=== PATIENT | female | born 1980 ===

== ENCOUNTER → 2021-01-27 13:08 | Outpatient (BNVA) | payer MEDICAID, SELFPAY | PROVIDERS: Visit Provider Surgery ==

== ENCOUNTER → 2021-01-28 09:47 | Outpatient (BNVA) | payer MEDICAID, SELFPAY | PROVIDERS: Visit Provider Physician Assistant ==

== ENCOUNTER 2021-02-02 08:59 | Outpatient (REF) | payer OTHER, SELFPAY ==
--- NOTE | ~2021-02-02 | XR_ITS ---
EXAMINATION: XR CHEST CLINICAL INFORMATION: Moderate/severe base due to excessive calories COMPARISON: None TECHNIQUE: 2 views of the chest were obtained. FINDINGS: No significant abnormality is noted involving the heart, lungs, mediastinum, bony thorax or soft tissues. XR/XR chest 2V IMPRESSION: Unremarkable chest examination.
--- NOTE | 2021-02-02 09:11 | ECG_ITS ---
Test Reason : MORBID OBESITY Blood Pressure : / mmHG Vent. Rate : 077 BPM Atrial Rate : 077 BPM P-R Int : 134 ms QRS Dur : 078 ms QT Int : 364 ms P-R-T Axes : 015 023 011 degrees QTc Int : 411 ms Normal sinus rhythm Normal ECG No previous ECGs available Referred By: Hugo Colmenares Electronically Signed By:Usman Ralph
[2021-02-02 09:42] LABS: MANUAL DIFF FLAG NO
[2021-02-02 09:49] LABS: Basophils Percent Auto 0.3 % (0-2); Eosinophils Absolute Auto 0.2 X10*3/uL (0.0-0.4); Eosinophils Percent Auto 1.9 % (0-4); Hematocrit 39.6 % (37-47); Hemoglobin 12.2 g/dl (12.0-16.0); Imm Gran Abs Auto 0.03 X10*3/uL (0.00-0.03); Imm Gran Pct Auto 0.3 % (0.0-0.4); Lymphocytes Absolute Auto 2.1 X10*3/uL (1.2-4.9); Lymphocytes Percent Auto 23.5 % (20-40); Mean Corpuscular HGB Conc 30.8 g/dl (31.0-35.0); Mean Corpuscular Hemoglobin 27.2 pg (27.0-33.0); Mean Corpuscular Volume 88.2 fL (80-98); Mean Platelet Volume 9.6 fL (9.4-12.3); Monocytes Absolute Auto 0.8 X10*3/uL (0.1-1.2); Monocytes Percent Auto 8.7 % (2-11); Neutrophils Absolute Auto 5.7 X10*3/uL (2.0-8.3); Neutrophils Percent Auto 65.3 % (45-73); Platelet Count 395 X10*3/uL (160-400); Red Blood Count 4.49 X10*6/uL (4.20-5.50); Red Cell Distribution Width 13.2 % (11.0-16.0); White Blood Count 8.7 X10*3/uL (4.8-10.8)
[2021-02-02 09:58] LABS: Estimated Average Glucose 123 mg/dL; Hemoglobin A1c % 5.9 %
[2021-02-02 10:06] LABS: Alanine Aminotransferase 14 U/L (0-31); Alkaline Phosphatase 97 U/L (39-117); Anion Gap 11 (12-20); Aspartate Amino Transferase 15 U/L (5-31); Bilirubin Total 0.2 mg/dL (0.0-1.0); Blood Urea Nitrogen 15 mg/dL (9-16); C Reactive Protein 2.51 mg/dL (< or = 0.50); Carbon Dioxide 27 mmol/L (22-29); Chloride 105 mmol/L (96-108); Cholesterol 187 mg/dL; Estimated Glomerular Filt Rate > 60; Glucose Random 110 mg/dL (60-115); HDL Cholesterol 42 mg/dL; LDL Cholesterol Calculated 126 mg/dl; Sodium 138 mmol/L (135-145); Total Protein 7.8 g/dL (6.5-8.0); Triglycerides 99 mg/dL
[2021-02-02 10:31] LABS: Ferritin 29 ng/mL (10-122); TSH reflex Free T4 2.95 uIU/mL (0.32-4.0); Vitamin D 25-OH Total 12.6 ng/mL (>30)
[2021-02-02 11:00] LABS: Folate 5.6 ng/mL (> or = 4.0); Vitamin B12 407 pg/mL (200-900)
[2021-02-03 10:27] LABS: Insulin Level Total 14.3 uIU/mL
[2021-02-03 14:53] LABS: H Pylori Breath Test DETECTED (NOT DETECTED)
[2021-02-03 16:27] LABS: Calcium (PTHI) 9.3 mg/dL (8.6-10.2); PTHI 110 pg/mL (14-64)
[2021-02-06 10:58] LABS: Zinc 77 mcg/dL (60-130)
[2021-02-07 06:17] LABS: Vitamin B1 7 nmol/L (8-30)
[2021-02-07 13:47] LABS: Vitamin A 27 mcg/dL (38-98)
== END 2021-02-02 09:00 | disposition home or self-care (01) ==
LOC: HO.LAB 08:59
PROVIDERS: Visit Provider Surgery
DX: E66.01 Morbid (severe) obesity due to excess calories (principal)
CPT/HCPCS: 36415; 71046; 80053; 80061; 82306; 82607; 82728; 82746; 83013; 83036; 83525; 83970; 84425; 84443; 84590; 84630; 85025; 86140; 93005; 99211

== ENCOUNTER 2021-02-10 08:49 | Outpatient (REF) | payer OTHER, SELFPAY ==
--- NOTE | ~2021-02-10 | FL_ITS ---
EXAMINATION: XR GI SERIES CLINICAL INFORMATION: Morbid posterior base due to excessive calyces COMPARISON: None TECHNIQUE: Routine upper GI air-contrast study is performed in upright and lying position. FINDINGS: Following oral administration of thick barium and effervescent granules there is normal propagation of bolus from the oral cavity through the pharynx, esophagus into stomach without any evidence of obstruction, narrowing or stricture. The course, caliber and peristalsis of the stomach and the duodenum is normal. There is a mild gastroesophageal reflux in right lateral decubitus view. No hiatal hernia seen. The mucosal pattern of stomach, duodenal bulb and the sweep is normal. FLUOROSCOPY TIME: 2.1 minutes DOSE AREA PRODUCT: 47.88 4 uGy-m2 (microgray-meter squared) FL/FL upper GI series IMPRESSION: Mild gastroesophageal reflux without hiatal hernia.
--- NOTE | ~2021-02-10 | US_ITS ---
EXAMINATION: US COMPLETE ABDOMEN WITH LIVER ELASTOGRAPHY CLINICAL INFORMATION: Moderate/severe obesity due to excess calories. COMPARISON: None. TECHNIQUE: Real-time imaging of the abdominal viscera. Noninvasive ultrasound liver fibrosis assessment is performed using Jaimie ElastPQ point quantification shear wave elastography (pSWE) with a C5-2 MHz transducer. Multiple elastography samples are obtained. FINDINGS: PANCREAS: The visualized pancreatic head and body are normal in appearance. The remainder of the pancreas is obscured from visualization by the overlying bowel gas. ABDOMINAL AORTA: The proximal, middle, and distal aortic segments are normal in caliber. INFERIOR VENA CAVA: Visualized portions are normal. LIVER: The liver demonstrates normal size, contour and increased echogenicity. No focal lesion or intrahepatic biliary duct dilatation. The right lobe measures 14.7 cm in length. The left lobe measures 11.1 cm in length. Portal flow is hepatopedal. Shear wave liver elastography median stiffness is 1.09 m/s (reference: normal median stiffness is 1.3 m/s or less). IQR/median stiffness to assess sampling precision is 0.13 (reference: good quality data set is IQR/median stiffness of 0.15 or less). GALLBLADDER: Normal. The gallbladder is physiologically distended without evidence of stones, sludge, polyps, wall thickening or pericholecystic fluid. COMMON BILE DUCT: Normal in caliber measuring 0.4 cm in diameter. RIGHT KIDNEY: Normal. No hydronephrosis. No renal calculi or focal parenchymal lesions. The kidney measures 10.5 cm in maximum dimension. LEFT KIDNEY: Normal. No hydronephrosis. No renal calculi or focal parenchymal lesions. The kidney measures 10.8 cm in maximum dimension. SPLEEN: Normal. The spleen measures 11.3 cm in maximum dimension. FREE FLUID: None. US/US abdomen comp w elastography IMPRESSION: 1. Mild hepatic echogenicity. The rest of the abdominal ultrasound is unremarkable. 2. Liver elastography: Median stiffness 1.09 m/s. Normal exam. REFERENCE: Society of Radiologists in Ultrasound Liver Stiffness Thresholds (2020): LIVER STIFFNESS THRESHOLDS: *Liver Stiffness equal or less than 1.3 m/s: High probability of being normal. *Liver Stiffness less than 1.7 m/s: In the absence of other known clinical signs, rules out compensated advanced chronic liver disease. *Liver Stiffness 1.7-2.1 m/s: Suggestive of compensated advanced chronic liver disease but need further test for confirmation. *Liver Stiffness over 2.1 m/s: Rules in compensated advanced chronic liver disease. *Liver Stiffness over 2.4 m/s: Suggestive of clinically significant portal hypertension. QUALITY OF DATA SET: *IQR/Median value equal or less than 0.15 implies a quality data set. *IQR/Median value over 0.15 implies a poor quality data set. SIGNIFICANT CHANGE FROM PRIOR EXAM: Significant change if liver stiffness measurement is 10% or greater from prior exam. OTHER CONSIDERATIONS: The stage of liver fibrosis may be overestimated in the setting of acute hepatitis, liver inflammation, elevated liver function tests, hepatic vascular congestion, obstructive cholestasis, non-fasting state, and infiltrative diseases such as amyloidosis and lymphoma. In some patients with NAFLD, the liver stiffness thresholds for compensated advanced chronic liver disease may be lower. In causes other than viral hepatitis and NAFLD, liver stiffness thresholds are not well established.
== END 2021-02-10 08:50 | disposition home or self-care (01) ==
LOC: HO.US 08:49
PROVIDERS: PCP Nurse Practitioner Family; Visit Provider Surgery
DX: Z01.818 Encounter for other preprocedural examination (principal); E66.01 Morbid (severe) obesity due to excess calories; K21.9 Gastro-esophageal reflux disease without esophagitis
CPT/HCPCS: 74240; 76705; 76981

== ENCOUNTER → 2021-02-16 08:15 | Outpatient (BNVA) | payer OTHER, SELFPAY | PROVIDERS: PCP Nurse Practitioner Family; Visit Provider Surgery ==

== ENCOUNTER → 2021-02-23 08:08 | Outpatient (BNVA) | payer OTHER, SELFPAY | PROVIDERS: Visit Provider Dietitian, Registered ==

== ENCOUNTER 2021-03-10 08:26 | Outpatient (REF) | payer OTHER, SELFPAY ==
[2021-03-11 13:36] LABS: H Pylori Breath Test NOT DETECTED (NOT DETECTED)
== END 2021-03-10 08:27 | disposition home or self-care (01) ==
LOC: HO.LNP 08:26
PROVIDERS: Visit Provider Surgery
DX: E66.01 Morbid (severe) obesity due to excess calories (principal); A04.8 Other specified bacterial intestinal infections
CPT/HCPCS: 83013; 99211

== ENCOUNTER → 2021-03-14 08:46 | Outpatient (BNVA) | payer OTHER, SELFPAY | PROVIDERS: PCP Nurse Practitioner Family; Visit Provider Surgery ==

== ENCOUNTER → 2021-03-23 08:26 | Outpatient (BNVA) | payer OTHER, SELFPAY | PROVIDERS: PCP Nurse Practitioner Family; Visit Provider Dietitian, Registered | DX: E66.01 Morbid (severe) obesity due to excess calories (principal); Z68.41 Body mass index [BMI] 40.0-44.9, adult; Z71.3 Dietary counseling and surveillance | CPT/HCPCS: 97803 ==

== ENCOUNTER → 2021-04-06 08:10 | Outpatient (BNVA) | payer OTHER, SELFPAY | PROVIDERS: PCP Nurse Practitioner Family; Visit Provider Surgery ==

== ENCOUNTER → 2021-04-29 08:26 | Outpatient (BNVA) | payer OTHER, SELFPAY | PROVIDERS: PCP Nurse Practitioner Family; Visit Provider Surgery ==

== ENCOUNTER → 2021-05-27 09:18 | Outpatient (BNVA) | payer OTHER, SELFPAY | PROVIDERS: PCP Nurse Practitioner Family; Referring Provider Nurse Practitioner Family; Visit Provider Physician Assistant ==

== ENCOUNTER → 2021-06-06 07:06 | Outpatient (BNVA) | payer OTHER, SELFPAY | PROVIDERS: PCP Nurse Practitioner Family; Visit Provider Surgery | DX: E66.9 Obesity, unspecified (principal); K21.9 Gastro-esophageal reflux disease without esophagitis; Z68.39 Body mass index [BMI] 39.0-39.9, adult | CPT/HCPCS: 99212 ==

== ENCOUNTER 2021-06-07 09:23 | Outpatient (REF) | payer OTHER, SELFPAY ==
[2021-06-07 10:17] LABS: MANUAL DIFF FLAG NO
[2021-06-07 10:22] LABS: Basophils Percent Auto 0.4 % (0-2); Eosinophils Absolute Auto 0.2 X10*3/uL (0.0-0.4); Eosinophils Percent Auto 1.8 % (0-4); Hematocrit 39.1 % (37-47); Hemoglobin 11.9 g/dl (12.0-16.0); Imm Gran Abs Auto 0.02 X10*3/uL (0.00-0.03); Imm Gran Pct Auto 0.2 % (0.0-0.4); Lymphocytes Absolute Auto 1.9 X10*3/uL (1.2-4.9); Lymphocytes Percent Auto 23.9 % (20-40); Mean Corpuscular HGB Conc 30.4 g/dl (31.0-35.0); Mean Corpuscular Hemoglobin 26.1 pg (27.0-33.0); Mean Corpuscular Volume 85.7 fL (80-98); Mean Platelet Volume 9.9 fL (9.4-12.3); Monocytes Absolute Auto 0.7 X10*3/uL (0.1-1.2); Monocytes Percent Auto 9.1 % (2-11); Neutrophils Absolute Auto 5.2 X10*3/uL (2.0-8.3); Neutrophils Percent Auto 64.6 % (45-73); Platelet Count 331 X10*3/uL (160-400); Red Blood Count 4.56 X10*6/uL (4.20-5.50); Red Cell Distribution Width 13.5 % (11.0-16.0); White Blood Count 8.1 X10*3/uL (4.8-10.8)
[2021-06-07 10:28] LABS: Prothrombin Time 11.4 SEC (9.9-13.0)
[2021-06-07 10:31] LABS: Partial Thromboplastin Time 32.8 SEC (24.1-38.0)
[2021-06-07 10:41] LABS: Estimated Average Glucose 120 mg/dL; Hemoglobin A1c % 5.8 %
[2021-06-07 10:44] LABS: Alanine Aminotransferase 11 U/L (0-31); Albumin Level 3.9 g/dL (3.5-5.0); Alkaline Phosphatase 80 U/L (39-117); Anion Gap 13 (12-20); Aspartate Amino Transferase 15 U/L (5-31); Bilirubin Total 0.4 mg/dL (0.0-1.0); Blood Urea Nitrogen 15 mg/dL (9-16); C Reactive Protein 2.01 mg/dL (< or = 0.50); Calcium 8.9 mg/dL (8.4-10.2); Carbon Dioxide 24 mmol/L (22-29); Chloride 107 mmol/L (96-108); Cholesterol 190 mg/dL; Estimated Glomerular Filt Rate > 60; Glucose Random 104 mg/dL (60-115); HDL Cholesterol 46 mg/dL; LDL Cholesterol Calculated 123 mg/dl; Potassium 4.6 mmol/L (3.3-5.1); Sodium 139 mmol/L (135-145); Total Protein 7.4 g/dL (6.5-8.0); Triglycerides 108 mg/dL
[2021-06-07 11:07] LABS: Ferritin 18 ng/mL (10-122); TSH reflex Free T4 2.62 uIU/mL (0.32-4.0)
[2021-06-08 13:51] LABS: PTHI 77 pg/mL (14-64)
[2021-06-08 22:16] LABS: Insulin Level Total 13.9 uIU/mL
== END 2021-06-07 09:24 | disposition home or self-care (01) ==
LOC: HO.LAB 09:23
PROVIDERS: PCP Nurse Practitioner Family; Visit Provider Surgery
DX: E66.9 Obesity, unspecified (principal); Z68.39 Body mass index [BMI] 39.0-39.9, adult; K21.9 Gastro-esophageal reflux disease without esophagitis
CPT/HCPCS: 36415; 80053; 80061; 82728; 83036; 83525; 83970; 84443; 85025; 85610; 85730; 86140; 86850; 86900; 86901

== ENCOUNTER 2021-06-13 19:24 | Inpatient (IN) | payer OTHER, SELFPAY ==
[2021-06-01 10:28] VITALS: BMI 38.7
--- NOTE | 2021-06-13 08:25 | P.CONAN_ITS ---
Documented by User: Rebecca Farrar 06/13/21 08:28 HPI - Anesthesia Eval Consult details Narrative: 40yo F for Gastrectomy Sleeve, EGD, Poss Diaphragmatic Hernia, Poss Ventral Hernia, Poss open PMFSH Active Problems Active Problems: All Active Problems (Updated 06/01/21 @ 10:29 by Carey Goss) Physical exam (Acute) Vitamin B1 deficiency (Acute) Vitamin A deficiency (Acute) Vitamin D deficiency (Acute) Vitamin B12 deficiency (Acute) H. pylori infection (Acute) Adjustment disorder, unspecified (Acute) Obesity (Acute) BMI 39.0-39.9,adult (Acute) GERD (gastroesophageal reflux disease) (Acute) Morbid obesity (Acute) Past Medical History Medical History COVID-19 vaccine administered GERD (gastroesophageal reflux disease) Morbid obesity Family History Family History Mother No problems noted. Father Pancreatic cancer Sister No problems noted. Sister No problems noted. Sister No problems noted. Brother No problems noted. Brother No problems noted. Daughter No problems noted. Son No problems noted. Surgical History Surgical History Hx of section Social History Social History Household Members: Family Housing: House Are you a primary personal care aide to a significant other at home: No Do you presently have visiting nurse or other home services: No Alcohol intake: current Alcohol intake frequency: holidays/special occasions only Patient Tobacco Use Status: Never used Tobacco Use of substances other than those prescribed or required for medical reasons: No Have you been hit, kicked, punched, or otherwise hurt by someone within the past year? If so, by whom?: No Are you DNR?: No Advance Directives: No Advance Directives Information Provided: No Advance Directives on File: No Recently lost weight without trying: No Eating poorly because of decreased appetite: No Nutrition Risks: No Nutritional Risk Patient : No FDLMP: 05/25/21 : No Poor oral hygiene: No (has braces (upper & lower)) Meds Allergies Allergy/AdvReac Type Severity Reaction Status Date / Time No Known Allergies Allergy Verified 06/14/21 10:16 Exam Exam Date and Time: June 13, 2021 0825 Height,Weight and Vital Signs: Height 5 ft 6 in Weight 108.862 kg Pertinent Lab Results Pertinent Lab Results: Laboratory Tests 06/07/21 09:35 Blood Type O Positive Antibody Screen NEGATIVE Laboratory Tests 06/07/21 06/07/21 09:35 09:35 WBC 8.1 Hgb 11.9 L Hct 39.1 Plt Count 331 Sodium 139 Potassium 4.6 Chloride 107 Carbon Dioxide 24 BUN 15 Creatinine 0.89 Laboratory Tests 06/07/21 06/07/21 06/07/21 09:35 09:35 09:35 PT 11.4 INR 1.0 APTT 32.8 Hemoglobin A1c % 5.8 Total Bilirubin 0.4 AST 15 ALT 11 Alkaline Phosphatase 80 C-Reactive Protein 2.01 H Total Protein 7.4 Albumin 3.9 TSH 2.62 Narrative Narrative: EKG 01/2021 Vent. Rate : 077 BPM Atrial Rate : 077 BPM P-R Int : 134 ms QRS Dur : 078 ms QT Int : 364 ms P-R-T Axes : 015 023 011 degrees QTc Int : 411 ms Normal sinus rhythm Normal ECG No previous ECGs available Assessment and Plan Assessment Anesthesia Assessment: Chart Reviewed Documented by User: Washington Hein 06/14/21 10:16 [facility] Past Medical History Medical History COVID-19 vaccine administered GERD (gastroesophageal reflux disease) Morbid obesity Family History Family History Mother No problems noted. Father Pancreatic cancer Sister No problems noted. Sister No problems noted. Sister No problems noted. Brother No problems noted. Brother No problems noted. Daughter No problems noted. Son No problems noted. Surgical History Surgical History Hx of section Social History Social History Household Members: Family Housing: House Are you a primary personal care aide to a significant other at home: No Do you presently have visiting nurse or other home services: No Alcohol intake: current Alcohol intake frequency: holidays/special occasions only Patient Tobacco Use Status: Never used Tobacco Use of substances other than those prescribed or required for medical reasons: No Have you been hit, kicked, punched, or otherwise hurt by someone within the past year? If so, by whom?: No Are you DNR?: No Advance Directives: No Advance Directives Information Provided: No Advance Directives on File: No Recently lost weight without trying: No Eating poorly because of decreased appetite: No Nutrition Risks: No Nutritional Risk Patient : No FDLMP: 05/25/21 : No Poor oral hygiene: No (has braces (upper & lower)) Meds Allergies Allergy/AdvReac Type Severity Reaction Status Date / Time No Known Allergies Allergy Verified 06/14/21 10:16 Exam Airway Mallampati Class: III TM Dist: >3cm Neck ROM: Full Loose/Missing/Broken Teeth: No Heart: rrr+[id number] Lungs: cta b/l Assessment and Plan Assessment Anesthesia Assessment: Anesthesia Plan Discussed, PAT Visit and Chart Reviewed Final Anesthetic Review NPO: Yes ASA Class: III Final Preanesthetic Review: No Changes in Pt Med Stat, Meds/Allgs Chart Reviewed, Consent Obtained/Reviewed and Anes Risks/Benef Reviewed Patient Risk: Intermediate Procedure Risk: Low Assessment/Block/Sedation in SS: Assess/Block/Sedation-SS Anesthetic Plan Anesthetic Plan: GA and Agree w/ Assess. and Plan Disposition: Standard PACU
--- NOTE | 2021-06-13 19:22 | MHC.SHP ---
Pre-Procedural Eval Section A Date of Service: 06/13/21 The patient is an INPATIENT: Yes The History & Physical has been completed within 30 days and I have reviewed it.: Yes Section B Chief Complaint: Morbid Severe Obesity Details of Present Illness: obesity Relevant Family History (Specify if Yes): No Relevant Social History: None Present Medications: see Short Stay Collaborative assessment Medical History: No relevant PMH History of Previous Operations: No relevant previous surgery Allergies: Allergies Allergy/AdvReac Type Severity Reaction Status Date / Time No Known Allergies Allergy Verified 06/06/21 10:59 Review of Systems Sugical H&P ROS: Negative: Constitution, Cardiovascular, Respiratory, Neurological, Psychiatric, Hem-Onc, Allergic/Immunologic, Gastrointestinal, Genitourinary, Musculoskeletal, Integumentary, Endocrine and Eyes/Ears/Nose/Throat Exam Surgical H&P Exam: Normal: HEENT, Normal: Heart, Normal: Lungs, Normal: Extremities, Normal: Abdomen, Normal: Skin and Normal: Neurological Plan Diagnosis/Plan: Unchanged I have reviewed the history and physical and performed a pertinent physical examination on my patient. No changes have occurred unless specified.
[2021-06-14] VITALS (12 sets, daily range): BP systolic 112–150; BP diastolic 67–80; PULSE 91–109; RESP 12–18; TEMP 36.2–36.7; O2SAT 88–100
[2021-06-14 10:09] LABS: UPreg QC Valid YES; Urine Pregnancy NEGATIVE (NEGATIVE)
[2021-06-14] MEDS: Lactated Ringers 1,000 ML 100 ML IVCONT (10:22)
[2021-06-14 10:31] LABS: COVID-19 Test Negative (Negative); IDNOW Serial# 9DD0AD1C
--- NOTE | 2021-06-14 13:18 | P.DS_ITS ---
DS: Providers Provider Date of Service: 06/15/21 Date of admission: 06/13/21 19:24 Primary care physician: Kristie Macario NP DS: Medications Discharge Medications Home Medications: Previous Rx's Medication Instructions Recorded cholecalciferol (vitamin D3) 125 125 mcg PO DAILY #30 cap 02/07/21 mcg (5,000 unit) capsule mecobalamin (vitamin B12) 1,000 1,000 mcg SUBLINGUAL DAILY #30 tab 02/07/21 mcg disintegrating tablet,sublingual omeprazole 40 mg capsule,delayed 40 mg PO DAILY #14 cap 02/07/21 release thiamine HCl (vitamin B1) 100 mg 100 mg PO DAILY #30 tab 02/07/21 tablet vitamin A palmitate 15,000 unit 10,000 unit PO .COMPLEX #30 tab 02/11/21 tablet ondansetron HCl 4 mg tablet 4 mg PO Q12H #20 tab 06/06/21 pantoprazole 40 mg tablet,delayed 40 mg PO DAILY #30 tab 06/06/21 release polyethylene glycol 3350 17 gram 17 g PO DAILY #14 ea 06/06/21 oral powder packet sucralfate 100 mg/mL oral 10 ml PO BID #400 ml 06/06/21 suspension DS: Summary Time Spent with Patient Time attestation: ADMITTING DIAGNOSIS: morbid obesity, GERD DISCHARGE DIAGNOSIS: same, 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 The patient had extensive work-up,lost 21.4 lbs preoperatively and was electively scheduled for laparoscopic, possible open sleeve gastrectomy and gastropexy. Risks and complications of the surgery were discussed with the patient in advance, particularly the possibility of , pulmonary embolism, anastomotic leak, bleeding, bowel injury, GERD, cardiac, renal or pulmonary complications. The patient understood all the risks and was in agreement with the surgical plan. Hospital Course: The patient underwent an uneventful laparoscopic sleeve gastrectomy with gastropexy on the day of admission. Postoperatively, the patient was transferred to the surgical floor. The patient was on IV Acetaminophen and IV dilaudid for pain control. Patient was started on bariatric phase 1 diet POD #0. On postoperative day one, the patient was feeling well without nausea, vomiting, fevers, or tachycardia. The patient had some mild incisional pain. The abdomen was soft. On the morning of postoperative day one, the patient was continued on 1 ounce of water or ice every half hour. During the first day, the patient did fairly well, having some incisional pain, but able to ambulate adequately and to tolerate liquids well. Since the patient is doing well, we decided that the patient was ready to be discharged. The patient was given instructions to follow-up with me next week and to call my office for any fever over 101, persistent abdominal pain, nausea, vomiting, GERD, symptoms of DVT such as calf tenderness, or leg swelling, or pulmonary embolism such as chest pain or shortness of breath. The patient was also instructed to drink 40-60 ounces of liquids per day using the 1-ounce cups. The patient was given prescription for Tylenol for pain, Zofran prn for nausea, and pantoprazole and carafate. The patient was encouraged to ambulate and use the incentive spirometer. The patient was allowed to shower, but no baths, and encouraged to stay active at home. All of these instructions were given to the patient personally. All questions were answered and the patient understood all instructions, the instructions were also given to the patient in print. Total time spent providing and/or coordinating discharge services: 15 Discharge coordination time: Less than 30 minutes Quality: Stroke Does the patient have a stroke diagnosis?: No Physical Exam Vital Signs: Vital Signs: Last Vital Signs Temp 97.9 F 06/14/21 13:10 Pulse 97 06/14/21 13:15 Resp 16 06/14/21 13:15 BP 131/69 06/14/21 13:15 Pulse Ox 100 06/14/21 13:15 Body Mass Index 38.7 DS: Data Data Completed and Pending Pending studies at discharge: Pending at discharge 06/14/21 12:36 Surgical [PTH] Routine Labs on day of discharge: Laboratory Results - last 24 hr 06/14/21 06/14/21 09:56 09:56 Urine Test NEGATIVE COVID-19 ([facility]) Negative COVID-19 Clin Com See Note Discharge Plan Discharge Anticipated Discharge Date/Time: 06/15/21 11:14 Patient Disposition: Home, Self-Care Discharge Diagnosis: s/p sleeve gastrectomy Referrals: Kristie Macario NP [Primary Care Provider] - 1 Week Discharge Medications: Continued cholecalciferol (vitamin D3) 125 mcg (5,000 unit) capsule 125 mcg PO DAILY Qty: 30 RF: 2 pantoprazole 40 mg tablet,delayed release (DR/EC) 40 mg PO DAILY Qty: 30 RF: 0 sucralfate 100 mg/mL suspension 10 ml PO BID Qty: 400 RF: 2 ondansetron HCl [Zofran] 4 mg tablet 4 mg PO Q12H Qty: 20 RF: 0 Discontinued thiamine HCl (vitamin B1) 100 mg tablet 100 mg PO DAILY Qty: 30 RF: 2 mecobalamin (vitamin B12) 1,000 mcg tablet,disintegrating 1,000 mcg sublingual DAILY Qty: 30 RF: 1 omeprazole 40 mg capsule,delayed release(DR/EC) 40 mg PO DAILY Qty: 14 RF: 0 vitamin A palmitate 15,000 unit tablet 10,000 unit PO .COMPLEX Qty: 30 RF: 2 polyethylene glycol 3350 [Miralax] 17 gram powder in packet 17 g PO DAILY Qty: 14 RF: 0 Discharge Orders: Discharge Order (Routine); Ordered 06/15/21 Ordered By: Hugo Colmenares Diet: other Activity on Discharge: No heavy lifting Stand Alone Forms: Patient Portal Discharge page Care Plan Goals: weight loss Health Concerns: morbid obesity Plan of Treatment: No tub baths, sex or returning to work until discussed at first post op appointment. No exercise, alcohol, tobacco or illegal drug use. Continue to use incentive spirometer hourly while awake. Walk in home for 5- 10 minutes every 2 hours during the first week. Continue phase 1 diet today and start phase 2 diet tomorrow morning. Follow all instructions in the bariatric handbook and call with any questions. The patient's medical history has been reviewed and they are considered low risk for post op DVT and therefore DVT prophylaxis is not considered necessary. Travel after surgery was reviewed. The patient has not disclosed any travel plans during the first 30 days after surgery and they have been advised that within the first 30 days after surgery any bus, plane, train or car travel over 2 hours in duration is contraindicated due to the possibility of developing blood clots from immobility. Any travel, needs to include periods of ambulation of 10 minutes in duration every 2 hours. The patient was instructed to discuss any plans for travel during this period with their bariatric surgeon. Assessment: stable POD # 1 s/p sleeve gastrectomy
[2021-06-14] MEDS: Famotidine/PF 20 MG/2 ML VIAL IVPUSH ×2 (13:35→21:24)
--- NOTE | 2021-06-14 13:36 | PM.OP ---
Brief Operative Note Date of Service: 06/14/21 Pre-op diagnosis: Severe obesity with comorbidities (see below) Post-op diagnosis: same Procedure: INITIAL PATIENT BMI ON PRESENTATION AT OUR OFFICE: 42.4 kg/m2 LAST BMI BEFORE SURGERY: 39.1 kg/m2 COMORBIDITIES: GERD, liver steatosis The patient participated in an intensive weekly lifestyle intervention and exercise program during which the patient has lost between the initial office visit and the last preoperative visit 26 lbs, or 10.05% of initial actual body weight. The patient met the BMI-criteria for bariatric surgery based on the BMI on initial presentation. The patient should not be penalized for achieving such weight loss because it is not sustainable long-term without surgical intervention and it was achieved in preparation for bariatric surgery under my direction and based on my published research ([email or web address] and [email or web address]) that a 10% preoperative weight loss improves long-term weight loss after surgery and reduces perioperative complications. Insurance carriers such as [facility] have endorsed my recommendations and have included in their policies criteria to include a 10% preoperative weight loss requirement. PROCEDURE: Esophago-gastroscopy, laparoscopic lysis of adhesions, laparoscopic sleeve gastrectomy and laparoscopic gastropexy INDICATIONS: This is a 40 year-old female who was electively scheduled for laparoscopic, possibly open sleeve gastrectomy. The risks and complications of the procedure were discussed with the patient in advance, particularly the possibility of ; pulmonary embolism; staple line leak; bleeding; GERD; cardiac, pulmonary, or renal complications; as well as long-term problems such as insufficient weight loss, vitamin deficiency, strictures, or ulcers. The patient understood all the risks, and was in agreement to proceed with surgery. DESCRIPTION OF PROCEDURE: After informed consent was obtained from the patient, the patient was given preoperative antibiotics, and was transferred to the operating room. After successful induction of general anesthesia, pneumatic compressive devices were placed on both lower extremities. An upper endoscopy was performed next. The oropharynx and esophagus appeared to be within normal limits. There was a diaphragmatic hernia present of moderate size consistent with the findings of the preoperative upper GI. The stomach was entered. Then after all fluid and air were suctioned and the stomach was fully decompressed, the scope was withdrawn and secured in the mid esophagus. The patient was then prepped and draped in the usual sterile manner, and abdominal access was established at the right upper quadrant with the Austyn technique. A 12 mm blunt port was inserted, and the abdomen was insufflated with CO2 to a pressure of 15 mmHg. Under direct visualization, additional ports were placed, specifically two 5 mm Versi-step ports to the left upper quadrant, and a 5 mm Versi-Step port to the right upper quadrant. 1% lidocaine plain was used to infiltrate all port sites as well as all fascia defects. Using the EndoClose suture passer device, we placed a #1 Polysorb tie across the falciform ligament in order to retract it up against the abdominal wall and prevent injury of the ligament with our instruments during the procedure. Following that, the patient was placed in a steep reverse Trendelenburg position. An additional 5 mm port was placed to the right flank for the Mediflex retractor that was used to retract the left lobe of the liver. The gastro-esophageal fat pad was opened with the ultrasonic device (Thunderbeat, Olympus) and the anterior esophagus and hiatus were exposed. The angle of His was opened with the ultrasonic device the fundus of the stomach from any diaphragmatic and splenic attachments. I then opened the gastrocolic ligament between the transverse colon and the greater curvature of the stomach with the ultrasonic device to enter the lesser sac and facilitate the ligation of the short gastric vessels. I started at a mid-point along the greater curvature and using the Thunderbeat, all short gastric vessels were divided all the way to the angle of His until the left brenda was completely dissected at its entirety. I then divided the gastro-colic ligament distally to a distance of about 3-4 cm proximal to the esophagus. There were extensive congenital adhesions between the pancreas and posterior gastric wall. Those were lysed completely with the ultrasonic device. Adhesiolysis took approximately 30 min to complete. The stomach was then divided transversely with one Endo HAMIDA-45 purple, one HAMIDA-45 orange and four HAMIDA-60 articulating orange loads using the RPOON stapler and loads. Every effort was made that the gastric sleeve had a tubular shape and an even caliber throughout. Once the sleeve resection was completed, the staple line of the gastric sleeve was reinforced with Hemoclips. The resected stomach was retrieved without difficulty from the Austyn port. A gastropexy was then performed in order to prevent postoperative GERD and partial gastric volvulus. Several interrupted 2.0 Surgidac sutures were placed between the sleeve's staple line and the previously divided greater omentum and gastro-colic ligament using the Endo-Stitch device. An upper endoscopy was performed. There was no narrowing at the GE junction. The scope was easily advanced all the way to the pylorus which was clearly visualized. There was no narrowing anywhere and the sleeve's caliber was even throughout. The sleeve's staple line was inspected and there was no evidence of ischemia, bleeding or dehiscence. At that point the gastroscope was withdrawn from the patient?s mouth while we were decompressing the bowel and the stomach from any remaining air. I looked into the lesser sac to see how the sleeve was situating and it was situating well. There was no bleeding from the staple line, spleen, or short gastric vessels. The Mediflex retractor was removed, and the undersurface of the liver was inspected and there was no bleeding. The patient was placed in supine position. I closed the fascial defect of the 12 mm port site with a figure of eight #1 Polysorb suture. Then 100 cc 0.25 % Marcaine plain with 10 mg of Dexamethasone were used to infiltrate the fascial closure as well as all skin incisions. At this point, the abdomen was deflated, all ports were removed under direct vision, and no bleeding was noted from any of the port sites. The skin incisions were irrigated with saline and were closed with 4-0 absorbable monofilament sutures. Steri-Strips and OpSites were used to cover all incisions. The patient was extubated and was transferred in stable condition to the recovery room for further care. I was present and performed all rivera parts of the procedure. Ms. Cruzson was the showroom sales assistant. There were no residents to assist with this case. Andrew Colmenares MD, PhD, FACS Surgeon: Hugo Colmenares MD Anesthesia: GETA, local and other (TAP block) Was an Rotary Derrick Operator used for this Procedure?: Yes Rotary Derrick Operator: Bri Fowler Estimated blood loss (mL): 10 IV fluids (mL): 2,500 Urine output (mL): 0 (No Arroyo to record) Pathology: other (Stomach) Condition: stable Disposition: PACU
--- NOTE | 2021-06-14 13:40 | PM.PNGS ---
Subjective Subjective Date of Service: 06/15/21 Interval history: Patient has mild incisional pain but was able to ambulate and use the incentive spirometer. Is tolerating phase 1 bariatric diet. Physical Exam Vital Signs: Vital Signs: Last Vital Signs Temp 97.9 F 06/14/21 13:10 Pulse 98 06/14/21 13:25 Resp 18 06/14/21 13:25 BP 137/70 06/14/21 13:25 Pulse Ox 97 06/14/21 13:25 Body Mass Index 38.7 GI: Inspection: Yes normal to inspection, Yes incision (clean, dry and intact) and Yes obesity Extrem: Right lower extremity: normal to inspection (no calf tenderness) Left lower extremity: normal to inspection (no calf tenderness) Progress Note: A&P Assessment and plan (1) Obesity: (2) BMI 39.0-39.9,adult: (3) GERD (gastroesophageal reflux disease): Status: Acute (4) S/P laparoscopic sleeve gastrectomy: Status: Acute Assessment and Plan: s/p laparoscopic sleeve gastrectomy and gastropexy Doing well Check am labs. If OK will discharge home (5) Congenital intra-abdominal adhesions: Status: Acute (6) Steatosis, liver: Status: Acute Fall Risk Details Current Medications: Current Medications Generic Name Dose Route Start Last Admin Trade Name Freq PRN Reason Stop Dose Admin Famotidine 20 mg 06/14/21 13:18 06/14/21 13:35 Famotidine/Pf 20 Mg/2 Ml Vial IVPUSH 20 mg BID NICKO Administration Fentanyl 50 mcg 06/14/21 10:17 Fentanyl Citrate/Pf 100 Mcg/2 Ml Vial IVPUSH Q5M PRN Pain, Moderate (Pain Scale 4-6 Hydromorphone HCl 0.5 mg 06/14/21 10:17 Hydromorphone Hcl 0.5 Mg/0.5 Ml Syringe IVPUSH Q5M PRN Pain, Severe (Pain Scale 7-10) Lactated Ringer's 1,000 mls @ 100 mls/hr 06/14/21 10:00 06/14/21 10:22 Lr IVCONT 100 mls/hr .Q10H NICKO Administration Promethazine HCl 12.5 mg/ 50.5 mls @ 202 mls/hr 06/14/21 10:17 Sodium Chloride IV ONCE PRN Nausea and Vomiting Ondansetron HCl 4 mg 06/14/21 10:17 Ondansetron Hcl 4 Mg/2 Ml Vial IVPUSH ONCE PRN Nausea and Vomiting Oxycodone HCl 10 mg 06/14/21 10:17 Oxycodone Hcl Immed Release 5 Mg Tablet PO ONCE PRN Pain, Mild (Pain Scale 1-3) Time Spent With Patient Time: Total time spent is greater than 50% in coordination of care (as documented) at patient's floor/unit and/or counseling patient: Time with patient: less than 15 minutes Procedures Date of Service Date of Service: 06/15/21 Quality Stroke Does the patient have a stroke diagnosis?: No VTE Prior VTE?: No VTE Risk Level:: Surgical - moderate VTE Device Contraindication: N/A - Device Ordered VTE Drug Contraindication: Treatment Not Indicated
[2021-06-14 14:05] LABS: Hematocrit 37.5 % (37-47); Hemoglobin 11.7 g/dl (12.0-16.0)
[2021-06-14 14:27] LABS: Anion Gap 10 (12-20); Blood Urea Nitrogen 8 mg/dL (9-16); Calcium 9.1 mg/dL (8.4-10.2); Carbon Dioxide 26 mmol/L (22-29); Chloride 107 mmol/L (96-108); Creatinine Clr Calc Pharmacy 104.8; Estimated Glomerular Filt Rate > 60; Glucose Random 168 mg/dL (60-115); Potassium 4.2 mmol/L (3.3-5.1); Sodium 139 mmol/L (135-145)
[2021-06-14] MEDS: Lactated Ringers 1,000 ML 125 ML IVCONT ×2 (14:34→21:24)
[2021-06-14] MEDS: Metoclopramide HCl 10 MG/2 ML VIAL IVPUSH (19:45)
[2021-06-14] MEDS: 0.9 % Sodium Chloride Flush 3 ML SYRINGE IVFLUSH (19:46)
[2021-06-14] MEDS: ondansetron HCL 4 MG/2 ML VIAL IVPUSH (23:18)
[2021-06-14] MEDS: cefoTEtan disodium 2 GM in 0.9 % Sodium Chloride 50 ML IV (23:18)
[2021-06-15 03:44] VITALS: BP 120/78; PULSE 106; RESP 16; TEMP 36.9; O2SAT 94
[2021-06-15] MEDS: Lactated Ringers 1,000 ML 125 ML IVCONT (06:01)
[2021-06-15] MEDS: ondansetron HCL 4 MG/2 ML VIAL IVPUSH (06:02)
[2021-06-15 06:59] LABS: MANUAL DIFF FLAG NO
[2021-06-15 07:07] LABS: Basophils Percent Auto 0.1 % (0-2); Hematocrit 35.5 % (37-47); Hemoglobin 11.2 g/dl (12.0-16.0); Imm Gran Abs Auto 0.05 X10*3/uL (0.00-0.03); Imm Gran Pct Auto 0.3 % (0.0-0.4); Lymphocytes Absolute Auto 1.1 X10*3/uL (1.2-4.9); Lymphocytes Percent Auto 7.4 % (20-40); Mean Corpuscular HGB Conc 31.5 g/dl (31.0-35.0); Mean Corpuscular Hemoglobin 26.6 pg (27.0-33.0); Mean Corpuscular Volume 84.3 fL (80-98); Monocytes Absolute Auto 0.6 X10*3/uL (0.1-1.2); Monocytes Percent Auto 4.4 % (2-11); Neutrophils Absolute Auto 12.6 X10*3/uL (2.0-8.3); Neutrophils Percent Auto 87.8 % (45-73); Platelet Count 299 X10*3/uL (160-400); Red Blood Count 4.21 X10*6/uL (4.20-5.50); Red Cell Distribution Width 13.4 % (11.0-16.0); White Blood Count 14.3 X10*3/uL (4.8-10.8)
[2021-06-15] MEDS: Famotidine/PF 20 MG/2 ML VIAL IVPUSH (07:14)
[2021-06-15] MEDS: 0.9 % Sodium Chloride Flush 3 ML SYRINGE IVFLUSH (07:17)
[2021-06-15 07:36] LABS: Anion Gap 12 (12-20); Blood Urea Nitrogen 7 mg/dL (9-16); Calcium 9.2 mg/dL (8.4-10.2); Carbon Dioxide 25 mmol/L (22-29); Chloride 107 mmol/L (96-108); Creatinine Clr Calc Pharmacy 109.7; Estimated Glomerular Filt Rate > 60; Glucose Random 128 mg/dL (60-115); Sodium 140 mmol/L (135-145)
[2021-06-15 08:00] VITALS: BP 125/63; PULSE 79; RESP 18; TEMP 36.6; O2SAT 93
--- NOTE | 2021-06-15 09:16 | MHC.CM.PN ---
EMR REVIEWED, PT ADMITTED S/P LAP SLEEVE GASTRECTOMY, GASTROPEXY AND LYSIS OF ADHESIONS, CM MET W/PT WHO REPORTS SHE LIVES W/MOTHER AND HER CHILDREN, PT DENIES USE OF DME AND HAS NO HOME SERVICES, PT DOES NOT ANTICIPATE ANY NEED FOR ASSISTANCE AFTER D/C AND REPORTS HER FAMILY CAN HELP W/ANY ISSUES THAT COME UP. PT VERIFIES PCP AND DENIES HAVING HCP, PT GIVEN EDUCATIONAL INFO AND BLANK HCP SHE WOULD LIKE TO CONVERSE W/FAMILY PRIOR TO DECIDING. D/C PLAN: HOME SELF-CARE W/FOLLOW-UP ON 06/[address] BILLINGS'S OFFICE, FAMILY FOR TRANSPORT PCP: MILENA PETERSEN
--- NOTE | 2021-06-15 16:03 | HO.POSTANES ---
Post Anesthesia Evaluation Post Anesthesia Evaluation Vital Signs: Vital Signs Temp Pulse Resp BP Pulse Ox 06/15/21 08:00 97.8 F 79 18 125/63 93 Anesthesia: General Endotracheal-GETA Mental Status: Awake Pain Control: Satisfactory Nausea/Vomiting: None Hydration: Adequate Anesthesia-Related Issues: No Anes. Related Issues
== END 2021-06-15 09:47 | disposition home or self-care (01) | DRG 403 ==
LOC: HO.SSSA 06-14 13:18 → HO.S3 06-14 13:23
PROVIDERS: Nurse Practitioner; Physician Assistant; Admitting Provider Surgery; PCP Nurse Practitioner Family; Visit Provider Surgery
PROC: (CPT 43845; principal; 2021-06-14 11:40)
DX: E66.01 Morbid (severe) obesity due to excess calories (principal); K76.0 Fatty (change of) liver, not elsewhere classified; K21.9 Gastro-esophageal reflux disease without esophagitis; K66.0 Peritoneal adhesions (postprocedural) (postinfection); Z68.39 Body mass index [BMI] 39.0-39.9, adult; Z20.822 Contact with and (suspected) exposure to COVID-19; Z79.899 Other long term (current) drug therapy
CPT/HCPCS: 36415; 80048; 81025; 85014; 85018; 85025; 86850; 86900; 86901; 87635; 88307; 88342; 99024; A4649; J0131; J0690; J1100; J1170; J2250; J2370; J2405; J2765; J3010

== ENCOUNTER → 2021-06-20 07:48 | Outpatient (BNVA) | payer OTHER, SELFPAY | PROVIDERS: PCP Nurse Practitioner Family; Visit Provider Surgery | DX: E66.9 Obesity, unspecified (principal); Z68.37 Body mass index [BMI] 37.0-37.9, adult; Z71.3 Dietary counseling and surveillance; Z79.899 Other long term (current) drug therapy; Z98.84 Bariatric surgery status | CPT/HCPCS: 99212 ==

== ENCOUNTER → 2021-07-27 07:21 | Outpatient (BNVA) | payer OTHER, SELFPAY | PROVIDERS: PCP Nurse Practitioner Family; Visit Provider Surgery ==

== ENCOUNTER → 2021-08-01 09:16 | Outpatient (BNVA) | payer OTHER, SELFPAY | PROVIDERS: PCP Nurse Practitioner Family; Visit Provider Surgery ==

== ENCOUNTER → 2021-08-08 08:07 | Outpatient (BNVA) | payer OTHER, SELFPAY | PROVIDERS: PCP Nurse Practitioner Family; Visit Provider Surgery | DX: E66.9 Obesity, unspecified (principal); Z68.38 Body mass index [BMI] 38.0-38.9, adult | CPT/HCPCS: 99212 ==

== ENCOUNTER → 2021-09-07 08:07 | Outpatient (BNVA) | payer OTHER, SELFPAY | PROVIDERS: PCP Nurse Practitioner Family; Visit Provider Surgery | DX: E66.9 Obesity, unspecified (principal); Z68.35 Body mass index [BMI] 35.0-35.9, adult | CPT/HCPCS: 99212 ==

== ENCOUNTER → 2021-10-17 08:18 | Outpatient (BNVA) | payer OTHER, SELFPAY | PROVIDERS: PCP Nurse Practitioner Family; Visit Provider Physician Assistant ==

== ENCOUNTER → 2021-11-11 08:10 | Outpatient (BNVA) | payer OTHER, SELFPAY | PROVIDERS: PCP Nurse Practitioner Family; Visit Provider Physician Assistant ==

== ENCOUNTER 2022-02-06 09:53 | Outpatient (REF) | payer OTHER, SELFPAY ==
[2022-02-06 10:25] LABS: MANUAL DIFF FLAG NO
[2022-02-06 10:57] LABS: Basophils Percent Auto 0.5 % (0-2); Eosinophils Absolute Auto 0.2 X10*3/uL (0.0-0.4); Eosinophils Percent Auto 2.6 % (0-4); Hematocrit 41.5 % (37.0-47.0); Hemoglobin 12.7 g/dl (12.0-16.0); Imm Gran Abs Auto 0.01 X10*3/uL (0.00-0.03); Imm Gran Pct Auto 0.1 % (0.0-0.4); Mean Corpuscular HGB Conc 30.6 g/dl (31.0-35.0); Mean Corpuscular Hemoglobin 27.4 pg (27.0-33.0); Mean Corpuscular Volume 89.6 fL (80.0-98.0); Mean Platelet Volume 10.2 fL (9.4-12.3); Monocytes Absolute Auto 0.7 X10*3/uL (0.1-1.2); Monocytes Percent Auto 8.8 % (2-11); Neutrophils Absolute Auto 4.7 x10*3/uL (2.0-8.3); Platelet Count 315 X10*3/uL (160-400); Red Blood Count 4.63 X10*6/uL (4.20-5.50); Red Cell Distribution Width 13.8 % (11.0-16.0); White Blood Count 7.6 X10*3/uL (4.8-10.8)
[2022-02-06 11:19] LABS: Estimated Average Glucose 108 mg/dL; Hemoglobin A1c % 5.4 %
[2022-02-06 11:27] LABS: Alanine Aminotransferase 14 U/L (0-31); Albumin Level 4.1 g/dL (3.5-5.0); Alkaline Phosphatase 78 U/L (39-117); Anion Gap 12 (12-20); Aspartate Amino Transferase 17 U/L (5-31); Bilirubin Total 0.4 mg/dL (0.0-1.0); Blood Urea Nitrogen 19 mg/dL (9-16); Calcium 10.1 mg/dL (8.4-10.2); Carbon Dioxide 29 mmol/L (22-29); Chloride 105 mmol/L (96-108); Cholesterol 209 mg/dL; Estimated Glomerular Filt Rate > 60; Glucose Fasting 88 mg/dL (60-99); HDL Cholesterol 52 mg/dL; LDL Cholesterol Calculated 136 mg/dl; Potassium 4.5 mmol/L (3.3-5.1); Sodium 141 mmol/L (135-145); Total Protein 7.8 g/dL (6.5-8.0); Triglycerides 105 mg/dL
[2022-02-06 11:44] LABS: Vitamin D 25-OH Total 32.8 ng/mL (>30)
[2022-02-06 11:46] LABS: Appearance Urine CLEAR; Color Urine YELLOW; Glucose Urine UA NEG (NEG); Leukocyte Esterase Urine TRACE (NEG); Nitrite Urine NEG (NEG); PH 5.5 (5.0-8.0); Specific Gravity - Urine >= 1.030 (1.005-1.025); UACC Culture Trigger YES; Urine Blood TRACE (NEG); Urine Ketones NEG (NEG); Urine Protein NEG (NEG-TRACE)
[2022-02-06 11:57] LABS: Bacteria Urine 4+ /LPF; RBC Urine 0-2 /HPF (0); Squamous Epithelial Cell Urine 2+ /LPF
[2022-02-06 12:10] LABS: Vitamin B12 584 pg/mL (200-900)
[2022-02-06 12:12] LABS: TSH reflex Free T4 2.43 uIU/mL (0.32-4.0)
== END 2022-02-06 09:54 | disposition home or self-care (01) ==
LOC: HO.LAB 09:53
PROVIDERS: PCP Internal Medicine; Visit Provider Internal Medicine
DX: Z00.00 Encounter for general adult medical examination without abnormal findings (principal); E66.9 Obesity, unspecified; R73.01 Impaired fasting glucose; E55.9 Vitamin D deficiency, unspecified; E78.5 Hyperlipidemia, unspecified; Z98.84 Bariatric surgery status
CPT/HCPCS: 36415; 80053; 80061; 81001; 82306; 82607; 82746; 83036; 84443; 85025; 87086; 87088; 87186

== ENCOUNTER → 2022-02-27 08:54 | Outpatient (BNVA) | payer OTHER, SELFPAY | PROVIDERS: PCP Internal Medicine; Referring Provider Internal Medicine; Visit Provider Physician Assistant | DX: E66.9 Obesity, unspecified (principal); Z68.34 Body mass index [BMI] 34.0-34.9, adult; Z98.84 Bariatric surgery status | CPT/HCPCS: 99212 ==

== ENCOUNTER → 2022-06-09 09:30 | Outpatient (BNVA) | payer OTHER, SELFPAY | PROVIDERS: PCP Internal Medicine; Referring Provider Internal Medicine; Visit Provider Physician Assistant Surgical | DX: E66.9 Obesity, unspecified (principal); Z68.34 Body mass index [BMI] 34.0-34.9, adult; Z98.84 Bariatric surgery status | CPT/HCPCS: 99212 ==

== ENCOUNTER 2022-08-09 09:26 | Outpatient (REF) | payer OTHER, SELFPAY ==
[2022-08-09 10:16] LABS: MANUAL DIFF FLAG NO
[2022-08-09 10:44] LABS: Basophils Percent Auto 0.5 % (0-2); Eosinophils Absolute Auto 0.2 X10*3/uL (0.0-0.4); Eosinophils Percent Auto 2.8 % (0-4); Hemoglobin 12.4 g/dl (12.0-16.0); Imm Gran Abs Auto 0.02 X10*3/uL (0.00-0.03); Imm Gran Pct Auto 0.3 % (0.0-0.4); Lymphocytes Absolute Auto 1.8 X10*3/uL (1.2-4.9); Lymphocytes Percent Auto 28.6 % (20-40); Mean Corpuscular HGB Conc 31.8 g/dl (31.0-35.0); Mean Platelet Volume 10.5 fL (9.4-12.3); Monocytes Absolute Auto 0.5 X10*3/uL (0.1-1.2); Monocytes Percent Auto 8.7 % (2-11); Neutrophils Absolute Auto 3.6 x10*3/uL (2.0-8.3); Neutrophils Percent Auto 59.1 % (45-73); Platelet Count 256 X10*3/uL (160-400); Red Blood Count 4.43 X10*6/uL (4.20-5.50); Red Cell Distribution Width 13.4 % (11.0-16.0); White Blood Count 6.1 X10*3/uL (4.8-10.8)
[2022-08-09 10:46] LABS: Estimated Average Glucose 111 mg/dL; Hemoglobin A1c % 5.5 %
[2022-08-09 11:06] LABS: Alanine Aminotransferase 18 U/L (0-31); Alkaline Phosphatase 80 U/L (39-117); Anion Gap 12 (12-20); Aspartate Amino Transferase 19 U/L (5-31); Bilirubin Total 0.4 mg/dL (0.0-1.0); Blood Urea Nitrogen 17 mg/dL (9-16); C Reactive Protein 0.77 mg/dL (< or = 0.50); Calcium 9.5 mg/dL (8.4-10.2); Carbon Dioxide 28 mmol/L (22-29); Chloride 105 mmol/L (96-108); Cholesterol 210 mg/dL; Estimated Glomerular Filt Rate > 60; Glucose Random 91 mg/dL (60-115); HDL Cholesterol 56 mg/dL; Iron 70 mcg/dL (30-160); LDL Cholesterol Calculated 142 mg/dl; Percent Iron Saturation 18 % (15-50); Potassium 4.4 mmol/L (3.3-5.1); Sodium 141 mmol/L (135-145); Total Iron Binding Capacity 391 mcg/dL (228-428); Total Protein 7.5 g/dL (6.5-8.0); Triglycerides 61 mg/dL; Unsaturated Iron Binding 321 ug/dL
[2022-08-09 11:21] LABS: Ferritin 23 ng/mL (10-250); Insulin 10 uU/mL (2-29); TSH reflex Free T4 2.66 uIU/mL (0.32-4.0); Vitamin D 25-OH Total 33.3 ng/mL (>30)
[2022-08-09 11:31] LABS: Folate 12.1 ng/mL (> or = 4.0); Vitamin B12 587 pg/mL (200-900)
[2022-08-10 14:03] LABS: Calcium (PTHI) 9.7 mg/dL (8.6-10.2); PTHI 49 pg/mL (16-77)
[2022-08-12 11:02] LABS: Vitamin B1 7 nmol/L (8-30)
[2022-08-13 18:55] LABS: Zinc 81 mcg/dL (60-130)
[2022-08-16 19:21] LABS: Vitamin A 38 mcg/dL (38-98)
== END 2022-08-09 09:27 | disposition home or self-care (01) ==
LOC: HO.LAB 09:26
PROVIDERS: PCP Internal Medicine; Visit Provider Internal Medicine
DX: Z00.00 Encounter for general adult medical examination without abnormal findings (principal); Z98.84 Bariatric surgery status
CPT/HCPCS: 36415; 80053; 80061; 82306; 82607; 82728; 82746; 83036; 83525; 83540; 83970; 84425; 84443; 84590; 84630; 85025; 86140

== ENCOUNTER → 2022-09-22 09:10 | Outpatient (BNVA) | payer OTHER, SELFPAY | PROVIDERS: PCP Internal Medicine; Visit Provider Physician Assistant Surgical | DX: E66.9 Obesity, unspecified (principal); Z98.84 Bariatric surgery status; Z68.36 Body mass index [BMI] 36.0-36.9, adult | CPT/HCPCS: 99212 ==

== ENCOUNTER 2022-10-16 13:20 | Outpatient (REF) | payer OTHER, SELFPAY ==
[2022-10-17 06:04] LABS: CT PCR NOT DETECTED (Not Detect.); NG PCR NOT DETECTED (Not Detect.)
[2022-10-17 12:05] LABS: BV Int Neg Control Negative (Negative); BV Int Pos Control Positive (Positive)
[2022-10-25 04:57] LABS: HPV mRNA E6/E7 rflx Not Detected (Not Detected)
== END 2022-10-16 13:21 | disposition home or self-care (01) ==
LOC: HO.LNP 13:20
PROVIDERS: Visit Provider Advanced Practice Midwife
DX: Z12.4 Encounter for screening for malignant neoplasm of cervix (principal); Z11.51 Encounter for screening for human papillomavirus (HPV); Z11.3 Encounter for screening for infections with a predominantly sexual mode of transmission; Z11.4 Encounter for screening for human immunodeficiency virus [HIV]
CPT/HCPCS: 87480; 87491; 87510; 87591; 87624; 87660; 88142

== ENCOUNTER 2022-11-10 07:40 | Outpatient (REF) | payer OTHER, SELFPAY ==
--- NOTE | ~2022-11-10 | MM_ITS ---
EXAMINATION: MM SCREENING DIGITAL BREAST TOMOSYNTHESIS, BILATERAL CLINICAL INFORMATION: Screening. Asymptomatic. Age 42. No prior breast imaging. The lifetime risk of breast cancer based on the Tyrer-Cuzick Model is 15%. COMPARISON: None (current study represents initial baseline exam). TECHNIQUE: Digital breast tomosynthesis is performed in both the craniocaudal and mediolateral oblique views along with computer-aided detection (CAD). Synthesized 2D images are generated from the tomosynthesis. FINDINGS: The breasts are almost entirely fatty (ACR BI-RADS breast composition Category a). Background stromal markings appearing normal. There is no significant mass and no architectural abnormality or abnormal calcific patient's incidental intramammary node present posterior 9:00 right breast. The axilla and skin contours are unremarkable. MM/MM tomosynthesis screening BI IMPRESSION: No mammographic evidence of malignancy. ASSESSMENT: BI-RADS 2: Benign RECOMMENDATION: Routine annual mammography screening. This patient's information was entered into a reminder system with a target due date for their next mammogram.
[2022-11-10 11:02] LABS: HIV AB/AG Nonreactive (Nonreactive); HIV Num 1 0.06 S/CO (0.00-0.99); ~HepC Num1 0.07 S/CO (0.00-0.79); ~Hepatitis C Antibody Nonreactive (Nonreactive)
[2022-11-10 13:02] LABS: Syphilis Screen Nonreactive (Nonreactive)
[2022-11-15 11:29] LABS: HBsAGNum2 Reactive; HBsAGNum3 Reactive
[2022-11-15 11:30] LABS: Hepatitis B Surface Antigen Retest CNFM (Negative)
[2022-11-15 11:31] LABS: Neutralization % 100
[2022-11-19 01:13] LABS: Hepatitis B Core Antibody IgM NON-REACTIVE (NON-REACTIVE)
== END 2022-11-10 07:41 | disposition home or self-care (01) ==
LOC: HO.MAMMO 07:40
PROVIDERS: Absent Provider Advanced Practice Midwife; PCP Internal Medicine; Visit Provider Internal Medicine
DX: Z01.419 Encounter for gynecological examination (general) (routine) without abnormal findings (principal); Z12.31 Encounter for screening mammogram for malignant neoplasm of breast; N89.8 Other specified noninflammatory disorders of vagina; E66.9 Obesity, unspecified; Z11.3 Encounter for screening for infections with a predominantly sexual mode of transmission; Z92.29 Personal history of other drug therapy
CPT/HCPCS: 36415; 77063; 77067; 86705; 86780; 86803; 87340; 87389

== ENCOUNTER → 2022-11-16 13:36 | Outpatient (BNVA) | payer OTHER, SELFPAY | PROVIDERS: PCP Internal Medicine; Visit Provider Advanced Practice Midwife | DX: Z13.89 Encounter for screening for other disorder (principal) ==

== ENCOUNTER 2022-11-30 12:59 | Outpatient (REF) | payer OTHER, SELFPAY ==
[2022-11-30 13:08] LABS: MANUAL DIFF FLAG NO
[2022-11-30 13:30] LABS: Basophils Percent Auto 0.6 % (0-2); Eosinophils Absolute Auto 0.2 X10*3/uL (0.0-0.4); Eosinophils Percent Auto 2.3 % (0-4); Hematocrit 40.2 % (37.0-47.0); Hemoglobin 12.7 g/dl (12.0-16.0); Imm Gran Abs Auto 0.02 X10*3/uL (0.00-0.03); Imm Gran Pct Auto 0.3 % (0.0-0.4); Lymphocytes Percent Auto 29.7 % (20-40); Mean Corpuscular HGB Conc 31.6 g/dl (31.0-35.0); Mean Corpuscular Hemoglobin 27.7 pg (27.0-33.0); Mean Corpuscular Volume 87.8 fL (80.0-98.0); Mean Platelet Volume 9.8 fL (9.4-12.3); Monocytes Absolute Auto 0.6 X10*3/uL (0.1-1.2); Monocytes Percent Auto 8.7 % (2-11); Neutrophils Percent Auto 58.4 % (45-73); Platelet Count 308 X10*3/uL (160-400); Red Blood Count 4.58 X10*6/uL (4.20-5.50); Red Cell Distribution Width 12.3 % (11.0-16.0); White Blood Count 6.9 X10*3/uL (4.8-10.8)
[2022-11-30 14:00] LABS: Alanine Aminotransferase 12 U/L (0-31); Albumin Level 4.5 g/dL (3.5-5.0); Alkaline Phosphatase 75 U/L (39-117); Anion Gap 13 (12-20); Aspartate Amino Transferase 20 U/L (5-31); Bilirubin Direct 0.2 mg/dL (0.0-0.5); Bilirubin Total 0.4 mg/dL (0.0-1.0); Blood Urea Nitrogen 16 mg/dL (9-16); Calcium 9.9 mg/dL (8.4-10.2); Carbon Dioxide 28 mmol/L (22-29); Chloride 106 mmol/L (96-108); Estimated Glomerular Filt Rate > 60; Glucose Random 88 mg/dL (60-115); Potassium 4.5 mmol/L (3.3-5.1); Sodium 142 mmol/L (135-145); Total Protein 8.1 g/dL (6.5-8.0)
[2022-11-30 14:04] LABS: Prothrombin Time 11.7 SEC (10.0-13.1)
== END 2022-11-30 13:00 | disposition home or self-care (01) ==
LOC: HO.LAB 12:59
PROVIDERS: PCP Internal Medicine; Visit Provider Nurse Practitioner Family
DX: B19.10 Unspecified viral hepatitis B without hepatic coma (principal)
CPT/HCPCS: 36415; 80048; 80076; 85025; 85610

== ENCOUNTER 2022-12-13 15:05 | Outpatient (REF) | payer OTHER, SELFPAY ==
--- NOTE | ~2022-12-13 | US_ITS ---
EXAMINATION: US ABDOMEN LIMITED CLINICAL INFORMATION: Unspecified viral hepatitis B without hepatic coma. COMPARISON: Abdominal ultrasound dated 02/10/2021. TECHNIQUE: Real-time imaging of the right upper quadrant abdominal viscera. FINDINGS: PANCREAS: Normal. LIVER: Normal. The liver is normal in size. The liver contour is normal. Parenchymal echogenicity is normal. No focal hepatic lesion. There is no intrahepatic biliary duct dilatation seen. GALLBLADDER: A 3 mm nonmobile polyp is seen. The gallbladder is physiologically distended without evidence of stones, sludge, wall thickening or pericholecystic fluid. COMMON BILE DUCT: Normal in caliber measuring 0.3 cm in diameter. RIGHT KIDNEY: Normal. No hydronephrosis. No renal calculi or focal parenchymal lesions. The kidney measures 10.0 cm in maximum dimension. FREE FLUID: None. US/US abdomen limited IMPRESSION: A 3 mm nonmobile gallbladder polyp is incidentally noted. Otherwise, unremarkable examination. The liver is normal in size and echotexture, without mass or biliary ductal dilatation.
== END 2022-12-13 15:06 | disposition home or self-care (01) ==
LOC: HO.US 15:05
PROVIDERS: Visit Provider Nurse Practitioner Family
DX: B19.10 Unspecified viral hepatitis B without hepatic coma (principal)
CPT/HCPCS: 76705

== ENCOUNTER 2022-12-25 10:03 | Outpatient (REF) | payer OTHER, SELFPAY ==
[2022-12-25 11:42] LABS: Hepatitis A Antibody IgG REACTIVE (Nonreactive); ~Hepatitis A Antibody IgG 9.51 S/CO (0.00-0.99)
[2022-12-25 11:46] LABS: HBc Num1 10.73 S/CO (0.00-0.79)
[2022-12-25 13:28] LABS: ~Hepatitis B Surface Antibody NONREACTIVE (Nonreactive)
[2022-12-25 13:43] LABS: HBc Num2 10.67 S/CO; HBc Num3 11.08 S/CO
[2022-12-25 13:44] LABS: Hepatitis B Core Antibody Reactive (Nonreactive)
[2022-12-26 17:49] LABS: Hepatitis B Viral DNA Qn - cp 3.18 Log IU/mL (NOT DETECTED); Hepatitis B Viral DNA Qn-IU/mL 1510 IU/mL (NOT DETECTED)
[2022-12-27 03:55] LABS: Hepatitis B Core Antibody IgM NON-REACTIVE (NON-REACTIVE)
[2022-12-27 18:24] LABS: Hepatitis BE Antibody REACTIVE (NON-REACTIVE); Hepatitis BE Antigen NON-REACTIVE (NON-REACTIVE)
[2023-01-03 20:28] LABS: Hepatitis Delta Antibody NEGATIVE
== END 2022-12-25 10:04 | disposition home or self-care (01) ==
LOC: HO.LAB 10:03
PROVIDERS: PCP Internal Medicine; Visit Provider Internal Medicine
DX: B19.10 Unspecified viral hepatitis B without hepatic coma (principal); K82.4 Cholesterolosis of gallbladder
CPT/HCPCS: 36415; 86692; 86704; 86705; 86706; 86707; 86708; 87350; 87517; 99202

== ENCOUNTER 2023-07-03 09:02 | Outpatient (AMB) | payer OTHER, SELFPAY ==
[2023-07-03 09:05] VITALS: BP 120/76; PULSE 76; O2SAT 97; BMI 38.0
--- NOTE | 2023-07-03 09:05 | A.OFFPC_ITS ---
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 Accompanied by: Self / Same As Patient Allergies No Known Allergies Allergy (Verified 07/03/23 09:54) Medication List - Last Reconciled 07/03/23 by Harlan Jackson MD acetaminophen (Tylenol) 325 mg PO QID PRN calcium citrate-vitamin D3 315 mg-5 mcg (200 unit) (Calcium Citrate + D) 1 tab PO BID zwymvhhthofv-vkz-tuuw-FA-vit K 45 mg iron- 800 mcg-120 mcg (Bariatric Multivitamins) caps PO DAILY thiamine HCl (vitamin B1) 100 mg PO DAILY Tobacco use date assessed: 07/03/23 Dental Screening Dental Screen Date: 07/03/23 Did you have a dental visit in the last 12 months?: Yes Did you have a dental problem in the last 6 months where you did not have access to dental care?: No Was dental information given to patient?: Patient has dentist HPI physical HPI Details Patient comes in today for her annual physical examination States that she feels okay although she is not happy to learn that she has gained a lot of weight since her last visit Admits that she does not really do any exercise as she works all day long 6 days a week and is usually exhausted when she gets home from work She denies any headaches or dizziness Denies any chest pains, no SOB No nausea/vomiting, no abdominal pain No change in bowel habits noted Denies any acute urinary symptoms Had her mammogram last done in 10/2022; pap smear/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 pylori infection Obesity (BMI 30-39.9) Pure hypercholesterolemia Steatosis, liver Vitamin A deficiency Vitamin B1 deficiency Vitamin B12 deficiency Vitamin D deficiency Surgical History History of sleeve gastrectomy Hx of section Hx of tubal ligation Family History Mother No problems noted. Father Pancreatic cancer Sister No problems noted. Sister No problems noted. Sister No problems noted. Brother No problems noted. Brother No problems noted. Daughter No problems noted. Son No problems noted. Paternal Grandmother Breast cancer Paternal Aunt Breast cancer Social History Household Members: Family Housing: House Are you a primary insurance healthcare representative to a significant other at home: No Do you presently have visiting nurse or other home services: No Alcohol intake: former Patient Tobacco Use Status: Never used Tobacco e-Cigarette/Vaping Use: Never Used Second Hand Smoke Exposure: No service: No Current occupational status: employed Cognitive needs: No Hearing needs: No Vision needs: No Female Reproductive History Menstrual Age of Menarche: 14 Questionnaire PHQ-9 Over the last 2 weeks, how often have you been bothered by any of the following problems? 1. Little interest or pleasure in doing things: not at all 2. Feeling down, depressed, or hopeless: not at all 3. Trouble falling or staying asleep, or sleeping too much: not at all 4. Feeling tired or having little energy: not at all 5. Poor appetite or overeating: not at all 6. Feeling bad about yourself - or that you are a failure or have let yourself or your family down: not at all 7. Trouble concentrating on things, such as reading the newspaper or watching television: not at all 8. Moving or speaking so slowly that other people could have noticed. Or the opposite - being so fidgety or restless that you have been moving around a lot more than usual: not at all 9. Thoughts that you would be better off or of hurting yourself in some way: not at all Total score: 0 Depression Screening Interpretation: Negative 71646 - PHQ-9 Billing: Yes Source: Developed by Drs. Shawn Mays, Kimberly Wayne, Herman Saenz and colleagues, with an educational [place] from [employer]. Thrive Questionnaire Date Thrive assessed: 07/03/23 I am a: Patient What is your living situation today?: I have a steady place to live Within the past 12 months, did the food you bought not last and you didn't have the money to get more?: Never true Within the past 12 months, did you worry whether your food would run out before you got money to buy more?: Never true Do you have trouble paying for medicines?: No Do you have trouble getting transportation to medical appointments?: No Do you have trouble paying your heating and electricity bill?: No Do you have trouble taking care of your child, family member or friend?: No Do you have trouble with day-to-day activities such as bathing, preparing meals, shopping, managing finances, etc.?: No Are you currently unemployed and looking for a job?: No Are you interested in more education?: No Please select the resources that you would like help with: None Currently or been in a relationship where the following occur: no concerns reported AUDIT C Alcohol Use Questionnaire (AUDIT-C) 1. How often do you have a drink containing alcohol?: Never 3. How often do you have six or more drinks on one occasion?: Never Total Score: 0 Score Reviewed/Action Taken: Yes ELVA-7 AMB Questionnaire ELVA-7 Date ELVA - 7 assessed: 07/03/23 Feeling nervous, anxious, or on edge: 0 = Not at all Not being able to stop or control worryin = Not at all Worrying too much about different things: 0 = Not at all Trouble relaxin = Not at all Being so restless that it is hard to sit still: 0 = Not at all Becoming easily annoyed or irritable: 0 = Not at all Feeling afraid as if something awful might happen: 0 = Not at all Total ELVA-7 score (0-4 normal; 5-9 mild; 10-14 moderate; 15-21 severe): 0 Source: Developed by Drs. Shawn Mays, Kimberly Wayne, Herman Saenz and colleagues, with an educational [place] from [employer]. ELVA-7 Assessment Billing ELVA-7 Assessment Tool: ELVA-7 Assessment 29569 Review of Systems Const Denies chills, Denies difficulty sleeping, Reports fatigue, Denies fever(s), Denies headache(s) and Denies malaise Eyes Denies blurry vision, Denies change in vision, Denies irritation and Denies itchy eyes ENT Denies dysphagia, Denies dizziness, Denies otalgia, Denies headache(s), Denies nasal congestion, Denies neck pain, Denies odynophagia, Denies sinus pain and Denies sore throat Card Denies chest pain, Denies rapid heart rate, Denies irregular heart rhythm, Denies palpitations and Denies dyspnea Resp Denies chest congestion, Denies cough, Denies dyspnea and Denies wheezing GI Denies abdominal pain, Denies bloating, Denies constipation, Denies dysphagia, Denies heartburn, Denies diarrhea, Denies nausea, Denies odynophagia and Denies vomiting Denies hematuria, Denies urinary frequency, Denies dysuria, Denies urinary incontinence and Denies urinary urgency Musc Denies back pain, Denies arthralgias, Denies joint swelling, Denies muscle weakness and Denies neck pain Skin/Breast Denies breast pain, Denies breast mass, Denies change in pigmentation, Denies lesions, Denies rash and Denies unusual bruising Neuro Denies dizziness, Denies headache(s) and Denies paresthesias Psych Denies anxiety and Denies depression Endo Reports fatigue and Denies palpitations Brian/Lymph Denies easy bruising Aller/Immun Denies itchy eyes and Denies wheezing Physical exam (Primary Care) Vital Signs: Last Vital Signs Pulse 76 07/03/23 09:05 BP 120/76 07/03/23 09:05 Pulse Ox 97 07/03/23 09:05 Oxygen Delivery Method Room Air 07/03/23 09:05 BMI result Body Mass Index 38.0 Tobacco/Smoking Status: Tobacco use Status Tobacco use date assessed 07/03/23 07/03/23 09:13 Patient Tobacco Use Status Never used Tobacco 07/03/23 09:13 e-Cigarette/Vaping Use Never Used 07/03/23 09:13 PHQ-9: PHQ-9 Score PHQ-9: Total score 0 07/03/23 09:32 Depression Screening Interpretation: Negative Thrive Assessment: Date of Thrive Assessment Date Thrive assessed 07/03/23 07/03/23 09:13 Currently or been in a relationship where the following occur: no concerns reported Const General: no acute distress, alert and awake Orientation/consciousness: patient oriented x3 HENMT Head: Yes normocephalic and Yes atraumatic Ears: external ears normal, TM's normal bilaterally and EAC's normal General nose exam: No nasal discharge present Face and sinus: Yes normal facial exam and Yes sinuses nontender Teeth and gingiva: dentition normal Throat: Yes posterior oropharynx normal and Yes tonsils normal (no TP congestion) Eyes Eyelids: Yes eyelids normal Conjunctivae: conjunctivae normal Pupils: Equal, round and reactive pupils present EOM: EOMs intact bilaterally Neck Neck: Yes no lymphadenopathy and Yes supple Thyroid: Thyroid normal Resp Auscultation: clear to auscultation bilaterally, no rales and no wheezes Cardio Rate: regular rate Rhythm: regular rhythm Heart sounds: no murmurs GI Palpation (GI): Soft to palpation, nontender and No hepatosplenomegaly present Auscultation: normal bowel sounds General: Yes no CVA tenderness Back/Spine/Pelvis Back: no CVA tenderness Thoracic/Lumbar Spine: thoracic and lumbar spine normal to inspection Skin Lesions: no lesions Rashes: no rashes Neuro General: patient oriented x3, moves all extremities, no focal motor deficits and CN's II-XI intact bilaterally Cranial nerves: Yes Equal, round and reactive pupils present Cognition (Neuro): normal cognition Gait exam (Neuro): Normal gait present Extrem General: Yes no clubbing, cyanosis or edema Assessment and Plan Assessment & Plan (1) Annual physical exam: Code(s): Z00.00 - Encounter for general adult medical examination without abnormal findings Plan: Check labs She is currently up-to-date with her yearly cancer screenings (mammogram and pap smear) (2) Pure hypercholesterolemia: Code(s): E78.00 - Pure hypercholesterolemia, unspecified Plan: Advised that her cholesterol levels done back in July 2022 were elevated - total cholesterol was at 210 mg/dl and her LDL cholesterol at 142 mg/dl Reinforced low cholesterol diet Will recheck her fasting lipids today for follow up (3) GERD (gastroesophageal reflux disease): Comment: no symptoms at present time Code(s): K21.9 - Gastro-esophageal reflux disease without esophagitis Qualifiers: Esophagitis presence: without esophagitis Qualified Code(s): K21.9 - Gastro-esophageal reflux disease without esophagitis Plan: Dietary restrictions reinforced Has not had to take any Rx for her GERD in a while now (+) Hx of H. pylori infection - s/p Tx prior to her bariatric surgery back in 2020 (4) Vitamin D deficiency: Code(s): E55.9 - Vitamin D deficiency, unspecified Plan: Will recheck her Vitamin D level for follow up (5) Vitamin B1 deficiency: Code(s): E51.9 - Thiamine deficiency, unspecified Plan: Continue Thiamine 100 mg QD Will recheck her Vitamin B1 level for follow up (6) Obesity (BMI 30-39.9): Comment: S/P sleeve gastrectomy in May 2021 Code(s): E66.9 - Obesity, unspecified Plan: Reinforced diet/exercise as tolerated; is encouraged to continue with her attempts at weight loss States that she has not followed up with weight management over the past couple of years - is encouraged to reach out to them and schedule an appointment to see them again for routine follow ups to help her with losing weight Plan Follow up in 6 months Orders: Orders [place]. Panel Fast Today E78.00 - Pure hypercholesterolemia, unspecified, K21.9 - Gastro-esophageal reflux disease without esophagitis, Z00.00 - Encounter for general adult medical examination without abnormal findings, Z98.84 - Bariatric surgery status Lipid Panel Today E78.00 - Pure hypercholesterolemia, unspecified, K21.9 - Gastro-esophageal reflux disease without esophagitis, Z00.00 - Encounter for general adult medical examination without abnormal findings, Z98.84 - Bariatric surgery status TSH reflex Free T4 Today E78.00 - Pure hypercholesterolemia, unspecified, K21.9 - Gastro-esophageal reflux disease without esophagitis, Z00.00 - Encounter for general adult medical examination without abnormal findings, Z98.84 - Bariatric surgery status Complete Blood Count Auto Diff Today I10 - Essential (primary) hypertension, K21.9 - Gastro-esophageal reflux disease without esophagitis, Z00.00 - Encounter for general adult medical examination without abnormal findings, Z98.84 - Bariatric surgery status UA CC w/rflx Micro + Cult Today K21.9 - Gastro-esophageal reflux disease without esophagitis, R30.0 - Dysuria, Z00.00 - Encounter for general adult medical exam ination without abnormal findings, Z98.84 - Bariatric surgery status Vitamin B12 and Folate Today E53.8 - Deficiency of other specified B group vitamins, K21.9 - Gastro-esophageal reflux disease without esophagitis, Z00.00 - Encounter for general adult medical examination without abnormal findings, Z98.84 - Bariatric surgery status Vitamin D 25-OH Total Today E55.9 - Vitamin D deficiency, unspecified, K21.9 - Gastro-esophageal reflux disease without esophagitis, Z00.00 - Encounter for general adult medical examination without abnormal findings, Z98.84 - Bariatric surgery status Vitamin A Today E50.9 - Vitamin A deficiency, unspecified, K21.9 - Gastro- esophageal reflux disease without esophagitis, Z00.00 - Encounter for general adult medical examination without abnormal findings, Z98.84 - Bariatric surgery status Vitamin B1 Today E51.9 - Thiamine deficiency, unspecified, K21.9 - Gastro- esophageal reflux disease without esophagitis, Z00.00 - Encounter for general adult medical examination without abnormal findings, Z98.84 - Bariatric surgery status Coding Level of Care Code Est Pt Prev Care 40-64y(85423) Diagnoses Annual physical exam Z00.00 Pure hypercholesterolemia E78.00 GERD (gastroesophageal reflux disease) K21.9 Esophagitis presence: without esophagitis Vitamin D deficiency E55.9 Vitamin B1 deficiency E51.9 Obesity (BMI 30-39.9) E66.9 Additional Codes ELVA-7 Assessment Billing - ELVA-7 Assessment Tool: ELVA-7 Assessment 70850 ([id number])
== END 2023-07-03 09:44 | disposition home or self-care (01) ==
PROVIDERS: PCP Internal Medicine; Visit Provider Internal Medicine
DX: Z00.00 Encounter for general adult medical examination without abnormal findings (principal); E66.9 Obesity, unspecified; E55.9 Vitamin D deficiency, unspecified; Z68.38 Body mass index [BMI] 38.0-38.9, adult; K21.9 Gastro-esophageal reflux disease without esophagitis; E78.00 Pure hypercholesterolemia, unspecified; E51.9 Thiamine deficiency, unspecified
CPT/HCPCS: 99396

== ENCOUNTER 2023-07-03 10:04 | Outpatient (REF) | payer OTHER, SELFPAY ==
[2023-07-03 10:25] LABS: MANUAL DIFF FLAG NO
[2023-07-03 11:04] LABS: Basophils Percent Auto 0.5 % (0-2); Eosinophils Absolute Auto 0.1 X10*3/uL (0.0-0.4); Eosinophils Percent Auto 1.5 % (0-4); Hematocrit 39.4 % (37.0-47.0); Hemoglobin 12.5 g/dl (12.0-16.0); Imm Gran Abs Auto 0.02 X10*3/uL (0.00-0.03); Imm Gran Pct Auto 0.3 % (0.0-0.4); Lymphocytes Absolute Auto 1.8 X10*3/uL (1.2-4.9); Lymphocytes Percent Auto 24.4 % (20-40); Mean Corpuscular HGB Conc 31.7 g/dl (31.0-35.0); Mean Corpuscular Hemoglobin 27.7 pg (27.0-33.0); Mean Corpuscular Volume 87.2 fL (80.0-98.0); Monocytes Absolute Auto 0.7 X10*3/uL (0.1-1.2); Monocytes Percent Auto 9.1 % (2-11); Neutrophils Absolute Auto 4.7 x10*3/uL (2.0-8.3); Neutrophils Percent Auto 64.2 % (45-73); Platelet Count 294 X10*3/uL (160-400); Red Blood Count 4.52 X10*6/uL (4.20-5.50); Red Cell Distribution Width 13.1 % (11.0-16.0); White Blood Count 7.4 X10*3/uL (4.8-10.8)
[2023-07-03 11:42] LABS: Alanine Aminotransferase 10 U/L (0-31); Albumin Level 3.9 g/dL (3.5-5.0); Alkaline Phosphatase 69 U/L (39-117); Anion Gap 10 (12-20); Aspartate Amino Transferase 15 U/L (5-31); Bilirubin Total 0.4 mg/dL (0.0-1.0); Blood Urea Nitrogen 15 mg/dL (9-16); Calcium 9.4 mg/dL (8.4-10.2); Carbon Dioxide 28 mmol/L (22-29); Chloride 107 mmol/L (96-108); Cholesterol 198 mg/dL; Estimated Glomerular Filt Rate > 60; Glucose Fasting 93 mg/dL (60-99); HDL Cholesterol 46 mg/dL; LDL Cholesterol Calculated 134 mg/dl; Potassium 4.5 mmol/L (3.3-5.1); Sodium 140 mmol/L (135-145); Total Protein 7.6 g/dL (6.5-8.0); Triglycerides 93 mg/dL
[2023-07-03 12:00] LABS: TSH reflex Free T4 2.81 uIU/mL (0.32-4.0)
[2023-07-03 12:06] LABS: Folate 9.5 ng/mL (> or = 4.0); Vitamin B12 698 pg/mL (200-900)
[2023-07-07 17:48] LABS: Vitamin A 32 mcg/dL (38-98)
[2023-07-09 05:18] LABS: Vitamin B1 10 nmol/L (8-30)
== END 2023-07-03 10:05 | disposition home or self-care (01) ==
LOC: HO.LAB 10:04
PROVIDERS: PCP Internal Medicine; Visit Provider Internal Medicine
DX: Z00.00 Encounter for general adult medical examination without abnormal findings (principal); K21.9 Gastro-esophageal reflux disease without esophagitis; E78.00 Pure hypercholesterolemia, unspecified; E55.9 Vitamin D deficiency, unspecified; E50.9 Vitamin A deficiency, unspecified; E53.8 Deficiency of other specified B group vitamins; I10 Essential (primary) hypertension; Z98.84 Bariatric surgery status
CPT/HCPCS: 36415; 80053; 80061; 82306; 82607; 82746; 84425; 84443; 84590; 85025

== ENCOUNTER 2023-07-16 09:01 | Outpatient (AMB) | payer OTHER, SELFPAY ==
--- NOTE | 2023-07-16 09:03 | A.OFFVIS_ITS ---
Intake Vital Signs 07/16/23 09:06 Height 5 ft 6 in Weight 233 lb 11.04 oz BMI 37.7 BP 93/51 L Blood Pressure Location Lt brachial Position Sitting Pulse 76 Intake Visit Reasons: 6 month follow up Intake Note: Joy presents in the office as a 6 month follow up. CC: She states that she is not having any concerns today. Break Up Worker Required: No Allergies No Known Allergies Allergy (Verified 07/16/23 09:06) HPI HPI Comments History of Present Illness Details 42y.o F who is from , hx of chronic hep B infection who is here for follow up for chronic HBV and GB polyp. 12/25/22: Pt currently does not have any gastrointestinal sx to include abd pain, N, V or diarrhea. Does not report any new rashes, joint pains. Was first diagnosed around 2001 when she was screened antenatally. Pt reports her father had chronic HBV, she is unsure of status of her mother. Monogamous, and has gotten checked multiple times and remains negative. Thinks she was treated once for this almost 10 years ago and was told its eradicated. Currently not on any antivirals. Most recent labs reviewed. HB s Ag + , HCV Ab negative. Recent US without any fibrosis. Elastography from 2020 also reassuring. GB polyp 3mm. 07/16/23: Pt today with no gastrointestinal complaints. Did get her children screened and they are negative for chronic hepatitis per her report. Labs from 07/03 reviewed with normal LFTs. [facility] Medical History Adjustment disorder, unspecified COVID-19 vaccine administered GERD (gastroesophageal reflux disease) H. pylori infection Obesity (BMI 30-39.9) Pure hypercholesterolemia Steatosis, liver Vitamin A deficiency Vitamin B1 deficiency Vitamin B12 deficiency Vitamin D deficiency Surgical History History of sleeve gastrectomy Hx of section Hx of tubal ligation Family History Mother No problems noted. Father Pancreatic cancer Sister No problems noted. Sister No problems noted. Sister No problems noted. Brother No problems noted. Brother No problems noted. Daughter No problems noted. Son No problems noted. Paternal Grandmother Breast cancer Paternal Aunt Breast cancer Social History Household Members: Family Housing: House Are you a primary acute care occupational therapist to a significant other at home: No Do you presently have visiting nurse or other home services: No Alcohol intake: former Patient Tobacco Use Status: Never used Tobacco e-Cigarette/Vaping Use: Never Used Second Hand Smoke Exposure: No service: No Current occupational status: employed Cognitive needs: No Hearing needs: No Vision needs: No Female Reproductive History Menstrual Age of Menarche: 14 Review of Systems Const All systems reviewed & are unremarkable except as noted in HPI and below Physical Exam Vital Signs: Last Vital Signs Pulse 76 07/16/23 09:06 BP 93/51 L 07/16/23 09:06 BMI result Body Mass Index 37.7 Gen appear: NAD HEENT: nonicteric, no cervical lymphadenopathy Chest: CTA CVS: Regular S1/S2 Abd: soft, nontender, nondistended, bowel sounds + Ext: no peripheral edema Neuro: A/Ox3, noted to move all extremities spontaneously Psych: interacting appropriately Assessment & Plan Assessment & Plan (1) Hepatitis B: Code(s): B19.10 - Unspecified viral hepatitis B without hepatic coma Plan: #Inactive chronic HBV - HBsAg pos, HBeAg neg with DNA <2000 - No advanced fibrosis based on NIT Most recent LFTs normal. Due for DNA check. If remains low, will cont to monitor as per AASLD guidelines. Plan: - HBV DNA quant - Fibrosure Follow up in 6 months if labs stable, otherwise sooner to discuss treatment options (2) Gallbladder polyp: Code(s): K82.4 - Cholesterolosis of gallbladder Plan: 3 mm polyp noted on US 11/2022. Pt asymptomatic. Will repeat US to ensure stability. If stable on this US, will increase interval to q1y. Orders: Orders Hepatitis B Viral DNA Qn Today B19.10 - Unspecified viral hepatitis B without hepatic coma US abdomen limited Today K82.4 - Cholesterolosis of gallbladder Liver Fibrosis Pnl Today B19.10 - Unspecified viral hepatitis B without hepatic coma Coding Level of Care Code Est Pt Level 4 (54993) Diagnoses Hepatitis B B19.10 Gallbladder polyp K82.4
[2023-07-16 09:06] VITALS: BP 93/51; PULSE 76; BMI 37.7
== END 2023-07-16 09:28 | disposition home or self-care (01) ==
PROVIDERS: PCP Internal Medicine; Visit Provider Internal Medicine
DX: B19.10 Unspecified viral hepatitis B without hepatic coma (principal); K82.4 Cholesterolosis of gallbladder
CPT/HCPCS: 99214

== ENCOUNTER 2023-07-16 09:01 | Outpatient (REF) | payer OTHER, SELFPAY ==
[2023-07-18 13:09] LABS: Hepatitis B Viral DNA Qn - cp 3.32 Log IU/mL (NOT DETECTED); Hepatitis B Viral DNA Qn-IU/mL 2080 IU/mL (NOT DETECTED)
[2023-07-20 18:03] LABS: FIB-ALT 10 U/L (6-29); FIB-Alpha-2-Macroglobulin 229 mg/dL (106-279); FIB-Apolipoprotein A1 181 mg/dL (101-198); FIB-GGT 18 U/L (3-55); FIB-Haptoglobin 202 mg/dL (43-212); FIB-Total Bilirubin 0.4 mg/dL (0.2-1.2); Liver Fibrosis Score 0.07; Liver Fibrosis Stage F0; Nec Inflam Act Grade A0; Nec Inflam Act Score 0.02
== END 2023-07-16 09:02 | disposition home or self-care (01) ==
LOC: HO.LAB 09:01
PROVIDERS: PCP Internal Medicine; Visit Provider Internal Medicine
DX: B19.10 Unspecified viral hepatitis B without hepatic coma (principal); K82.4 Cholesterolosis of gallbladder
CPT/HCPCS: 36415; 81596; 87517; 99212

== ENCOUNTER 2023-07-16 10:00 | Outpatient (REF) | payer OTHER, SELFPAY ==
[2023-07-16 10:12] LABS: Appearance Urine Clear; Color Urine Yellow; Glucose Urine UA Negative (Negative); Leukocyte Esterase Urine Trace (Negative); Nitrite Urine Positive (Negative); Specific Gravity - Urine 1.025 (1.005-1.025); UMIC TRIGGER UACC YES; Urine Blood Negative (Negative); Urine Ketones Negative (Negative); Urine Protein Negative (Neg-Trace)
[2023-07-16 10:14] LABS: Bacteria Urine 4+ (None Seen); Hyaline Casts Urine 0-2 /LPF (0-2); RBC Urine 0-2 /HPF (0-2); UACC Culture Trigger YES
== END 2023-07-16 10:01 | disposition home or self-care (01) ==
LOC: HO.LNP 10:00
PROVIDERS: Visit Provider Internal Medicine
DX: Z00.00 Encounter for general adult medical examination without abnormal findings (principal)
CPT/HCPCS: 81001; 87086; 87088; 87186

== ENCOUNTER 2023-08-15 09:25 | Outpatient (REF) | payer OTHER, SELFPAY ==
--- NOTE | ~2023-08-15 | US_ITS ---
EXAMINATION: US ABDOMEN COMPLETE CLINICAL INFORMATION: Cholesterolosis of the gallbladder. COMPARISON: Limited abdominal ultrasound 12/13/2022. Ultrasound abdomen complete with elastography 02/11/2020. TECHNIQUE: Real-time imaging of the abdominal viscera. FINDINGS: PANCREAS: Normal. ABDOMINAL AORTA: The proximal, mid, and distal segments are normal in caliber. INFERIOR VENA CAVA: Visualized portions are normal. LIVER: Normal. The liver is normal in size. The liver contour is normal. Parenchymal echogenicity is normal. No focal hepatic lesion. There is no intrahepatic biliary duct dilatation seen. GALLBLADDER: The gallbladder is physiologically distended without evidence of stones, sludge, wall thickening or pericholecystic fluid. A 4 mm gallbladder polyp minimally increased in size from prior previously 3 mm. Few additional punctate tiny gallbladder polyps not previously seen measuring up to 4 mm COMMON BILE DUCT: Normal in caliber measuring 0.4 cm in diameter. RIGHT KIDNEY: Normal. No hydronephrosis. No renal calculi or focal parenchymal lesions. The kidney measures 10.1 cm in maximum dimension. LEFT KIDNEY: Normal. No hydronephrosis. No renal calculi or focal parenchymal lesions. The kidney measures 10.3 cm in maximum dimension. SPLEEN: Normal. The spleen measures 10.8 cm in maximum dimension. FREE FLUID: None. US/US abdomen complete IMPRESSION: A 4 mm gallbladder polyp minimally increased in size from prior. Few additional punctate tiny gallbladder polyps not previously seen measuring up to 4 mm. Recommend one-year follow-up abdominal ultrasound to assess stability.
== END 2023-08-15 09:26 | disposition home or self-care (01) ==
LOC: HO.US 09:25
PROVIDERS: PCP Internal Medicine; Visit Provider Internal Medicine
DX: K82.4 Cholesterolosis of gallbladder (principal)
CPT/HCPCS: 76700; 76705

== ENCOUNTER 2023-08-28 09:30 | Outpatient (AMB) | payer OTHER, SELFPAY ==
--- NOTE | 2023-08-28 09:31 | A.OFFVIS_ITS ---
Intake VS Expanded 08/28/23 09:36 BP 108/64 Blood Pressure Location Rt brachial Blood Pressure Position Sitting Pulse 85 Pulse Source Pulse Oximeter Temp 98.0 F Temperature Source Temporal Artery Scan Pulse Oximetry 98 Oxygen Delivery Method Room Air Height 5 ft 6 in Weight 240 lb 6.4 oz BMI 38.8 Body Fat % 44.2 Body Fat Mass 106.2 Fat Free Mass 134.0 Visceral Fat Rating 12.0 Body Water % 39.8 Body Water Mass 95.6 Muscle Mass/Score 127.2 Basal Metabolic Rate/Score 1,885 Intake Visit Reasons: (OV) PO LSG 06/14/21 Allergies No Known Allergies Allergy (Verified 08/28/23 09:34) Medication List - Last Reconciled 08/28/23 by MARIA D Thorpe acetaminophen (Tylenol) 325 mg PO QID PRN calcium citrate-vitamin D3 315 mg-5 mcg (200 unit) (Calcium Citrate + D) 1 tab PO BID oaprhmqayivz-vex-iqvi-FA-vit K 45 mg iron- 800 mcg-120 mcg (Bariatric Multivitamins) caps PO DAILY nitrofurantoin monohyd/m-cryst 100 mg (Macrobid) 100 mg PO Q12H 7 days thiamine HCl (vitamin B1) 100 mg PO DAILY HPI HPI Comments History of Present Illness Details This?is a?42?yo female who is s/p LSG 06/14/2021. Presents for 2 year 3 month post op visit. Weight at last visit on 09/22/2022 was 225 pounds with a BMI of 36.3, weight today is 240.4 pounds, representing a 15.4 pound weight lgain with a BMI today of 38.8.? No complaints of nausea, emesis, abdominal pain or reflux, or constipation. Present meal plan includes: not following All meals last 20 - 30 minutes and does not drink and eat at the same time. Exercise routine includes: likes to use treadmill, was using incline workouts 4-5x/week, likes weight lifting but has not been exercising consistently [facility] Medical History Adjustment disorder, unspecified COVID-19 vaccine administered GERD (gastroesophageal reflux disease) H. pylori infection Obesity (BMI 30-39.9) Pure hypercholesterolemia Steatosis, liver Vitamin A deficiency Vitamin B1 deficiency Vitamin B12 deficiency Vitamin D deficiency Surgical History Hx of tubal ligation History of sleeve gastrectomy Hx of section Family History Mother No problems noted. Father Pancreatic cancer Sister No problems noted. Sister No problems noted. Sister No problems noted. Brother No problems noted. Brother No problems noted. Daughter No problems noted. Son No problems noted. Paternal Grandmother Breast cancer Paternal Aunt Breast cancer Social History Household Members: Family Housing: House Are you a primary ocular care technologist to a significant other at home: No Do you presently have visiting nurse or other home services: No Alcohol intake: former Patient Tobacco Use Status: Never used Tobacco e-Cigarette/Vaping Use: Never Used Second Hand Smoke Exposure: No service: No Current occupational status: employed Cognitive needs: No Hearing needs: No Vision needs: No Female Reproductive History Menstrual Age of Menarche: 14 Physical Exam Vital Signs: Last Vital Signs Temp 98.0 F 08/28/23 09:36 Pulse 85 08/28/23 09:36 BP 108/64 08/28/23 09:36 Pulse Ox 98 08/28/23 09:36 Oxygen Delivery Method Room Air 08/28/23 09:36 BMI result Body Mass Index 38.8 Assessment & Plan Assessment & Plan (1) Obesity (BMI 30-39.9): Comment: S/P sleeve gastrectomy in May 2021 Code(s): E66.9 - Obesity, unspecified (2) S/P laparoscopic sleeve gastrectomy: Code(s): Z98.84 - Bariatric surgery status Plan Pt has no surgical complications but is struggling with weight regain. Discussed more strict adherence to meal plan and resuming exercise. Pt did well after surgery with mostly a shake based plan. She is frustrated by weight gain but admits she is not following plan, feels hungry often. 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 Suggested the followin-10am Premier premade shake 11am Malay yogurt, can add berries 2-4pm Premier shake 5pm yogurt or 2oz meat, with fruit or veg 8pm string cheese encouraged pt to resume exercise regimen Labs reviewed, refilled Ca/D, Rx for vit A. Suggested meeting with RD for next visit to which pt was agreeable. Meal plan can be adjusted at that time depending on pt's compliance. I encouraged her to text me between now and next visit in 4-6 weeks with any questions/issues. Patient is obese and is not considered stable at this time. I spent a total of 30 minutes reviewing/updating records, examining the patient and counseling the patient on weight management as detailed above. Medications: New vitamin A palmitate 10,000 units PO DAILY 90 caps 3RF Refilled calcium citrate-vitamin D3 315 mg-5 mcg (200 unit) (Calcium Citrate + D) 1 tab PO BID 60 tabs 11RF Coding Level of Care Code Est Pt Level 4 (52373) Diagnoses Obesity (BMI 30-39.9) E66.9 S/P laparoscopic sleeve gastrectomy Z98.84
[2023-08-28 09:36] VITALS: BP 108/64; PULSE 85; TEMP 36.7; O2SAT 98; BMI 38.8
== END 2023-08-28 10:26 | disposition home or self-care (01) ==
PROVIDERS: PCP Internal Medicine; Visit Provider Physician Assistant Surgical
DX: E66.9 Obesity, unspecified (principal); Z68.38 Body mass index [BMI] 38.0-38.9, adult; Z90.3 Acquired absence of stomach [part of]; Z98.84 Bariatric surgery status
CPT/HCPCS: 99214

== ENCOUNTER → 2023-08-28 09:30 | Outpatient (BNVA) | payer OTHER, SELFPAY | PROVIDERS: PCP Internal Medicine; Visit Provider Physician Assistant Surgical | DX: E66.9 Obesity, unspecified (principal); Z68.38 Body mass index [BMI] 38.0-38.9, adult; Z98.84 Bariatric surgery status | CPT/HCPCS: 99212 ==

== ENCOUNTER 2023-10-26 09:35 | Outpatient (AMB) | payer OTHER, SELFPAY ==
--- NOTE | 2023-10-26 09:47 | MHC.OFFVIS ---
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: No Information Interpreted: non-clinical & clinical Technical Sourcing Recruiter: Technical Sourcing Recruiter Present (Rosas) Allergies No Known Allergies Allergy (Verified 10/26/23 09:51) Medication List - Last Reconciled 10/26/23 by Belkis Means CNM acetaminophen (Tylenol) 325 mg PO QID PRN calcium citrate-vitamin D3 315 mg-5 mcg (200 unit) (Calcium Citrate + D) 1 tab PO BID yrnzixepyvah-bsy-cbfp-FA-vit K 45 mg iron- 800 mcg-120 mcg (Bariatric Multivitamins) caps PO DAILY thiamine HCl (vitamin B1) 100 mg PO DAILY vitamin A palmitate 10,000 units PO DAILY Is last menstrual period known: Yes Last menstrual period: 10/20/23 Post menopausal: No HPI 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 She is considering re consult thing with the bariatric program but she actually knows what she needs to do in May make a different plan. She has a appointment for mammogram coming up. She says that she has always had irregular periods and sometimes gets only 1 or 2 periods a year she is just getting over her most recent. She did not think there was anything wrong with it because her mother and sisters and 5 members of her family all went through early menopause. [facility] Medical History Pure hypercholesterolemia Obesity (BMI 30-39.9) Steatosis, liver COVID-19 vaccine administered Adjustment disorder, unspecified H. pylori infection Vitamin B12 deficiency Vitamin D deficiency Vitamin A deficiency Vitamin B1 deficiency GERD (gastroesophageal reflux disease) Surgical History Hx of tubal ligation History of sleeve gastrectomy Hx of section Family History Mother No problems noted. Father Pancreatic cancer Sister No problems noted. Sister No problems noted. Sister No problems noted. Brother No problems noted. Brother No problems noted. Daughter No problems noted. Son No problems noted. Paternal Grandmother Breast cancer Paternal Aunt Breast cancer Social History Household Members: Family Housing: House Are you a primary special needs caregiver to a significant other at home: No Do you presently have visiting nurse or other home services: No Alcohol intake: former Patient Tobacco Use Status: Never used Tobacco e-Cigarette/Vaping Use: Never Used Second Hand Smoke Exposure: No service: No Current occupational status: employed Cognitive needs: No Hearing needs: No Vision needs: No Female Reproductive History Menstrual Age of Menarche: 14 Duration of menses: <3 days Date of last menstrual period: 10/20/23 control method: none Total pregnancies: 2 Full term: 2 Number of Living Children: 2 Date of last pap smear: 10/17/22 (negative) Date of Mammogram: 11/10/22 Physical Exam Vital Signs: Last Vital Signs BP 110/70 10/26/23 09:50 BMI result Body Mass Index 39.9 Const Other: obesity noted General: healthy appearing, comfortable, no acute distress, well developed and alert Nutritional Appearance: average body habitus Orientation/consciousness: patient oriented x3 Limitations: no limitations HEENT Head: Yes normocephalic Neck Neck: Yes normal visual inspection Thyroid: Thyroid normal Chest Chest palpation & inspection: normal inspection of the chest Breast/axilla inspection: normal inspection of the breasts and normal inspection of the axillae Breast/axilla palpation: normal palpation of the breasts and normal palpation of the axillae Resp Effort & Inspection: normal respiratory effort GI Inspection: Yes normal to inspection, No Abdominal wall edema and No distended Palpation (GI): Soft to palpation and nontender General: Yes bladder normal to palpation External Female Exam: normal external appearance and normal appearance of the urethra Speculum Exam - Vagina: normal appearance of the vagina, normal palpation and normal vaginal discharge Speculum Exam - Cervix: normal appearance of the cervix, normal palpation and nontender Bimanual exam- vagina & uterus: normal bimanual exam, normal palpation, uterine size normal, bladder normal to palpation, consistency normal, normal palpation, uterine mobility normal, uterine shape normal, No Cervical tenderness present, non-tender and no cervical motion tenderness Bimanual Exam- Adnexa, other: normal adnexae, no masses, normal and No adnexal tenderness Neuro General: patient oriented x3 Assessment & Plan Assessment & Plan (1) Well woman exam with routine gynecological exam: Code(s): Z01.419 - Encounter for gynecological examination (general) (routine) without abnormal findings (2) Cervical cancer screening: Comment: 10/16/2022 Pap is negative for with negative HPV. Code(s): Z12.4 - Encounter for screening for malignant neoplasm of cervix (3) History of irregular menstrual cycles: Code(s): Z87.42 - Personal history of other diseases of the female genital tract Plan -----Discussed in this visit the following: healthy balanced diet, regular and consistent exercise, getting recommended health screens, doing the best she can for her particular health concerns, kegel exercises, pap smear screening and followup recommendations, mammography screening and SBE, normal changes in cycles in her life stage--- .---Discussed normal changes that happen premenapausally, perimenapausally, and postmenopausally, and ways to handle them. Discussed the normal variation, and the range of experiences that women experience. Discussed nutrition, health, need for exercise, both weight-bearing and aerobic. Also discussed the normal changes that happen with vaginal mucosal thinning and sensitivity, and simple more natural ways of handling these challenges. Discussed her irregular cycles and that she should in necessarily presume that it is related to pre menopause early menopause. She just had a period now. Discussed that many times overweight women can have problems with irregular periods and they had can have a buildup of the lining of their uterus and it is not a good thing. If she ever goes more than 3 months without a. It would be best to give her a Provera challenge and if she did not get a period to follow through than afterwards. I offered her at this point to get a pelvic ultrasound and we will have a follow-up visit after I did tell her that if there was a thickened endometrial lining we would need to investigate that further and she is up for this. ---Discussed with pt, her wt, and BMI, and her goals. Discussed ideal dietary guidelines to assist in weight loss, focusing on vegetables and fruits and lean proteins, and minimizing fats and carbohydrates and eliminating empty calories. Discussed exercise, including regular, sufficient, and consistent cardio based exercise, and weight bearing exercise. Discussed barriers to exercise and healthy eating, and possible ways of establishing newer healthier habits. Discussed supports to help in her efforts, and timing issues. Discussed adequate sleep, and ways to achieve this. Discussed adequate water intake.-- She feels like she knows what she needs to do and she just needs to make the final decision to go ahead and commit to herself to do. She exhibits a lot of self-awareness and knowledge. Orders: Orders US pelvic and transvaginal Today Z01.419 - Encounter for gynecological examination (general) (routine) without abnormal findings, Z12.4 - Encounter for screening for malignant neoplasm of cervix, Z87.42 - Personal history of other diseases of the female genital tract Coding Level of Care Code Est Pt Prev Care 40-64y(09329) Diagnoses Well woman exam with routine gynecological exam Z01.419 Cervical cancer screening Z12.4 History of irregular menstrual cycles Z87.42
[2023-10-26 09:50] VITALS: BP 110/70; BMI 39.9
== END 2023-10-26 10:26 | disposition home or self-care (01) ==
LOC: HO.HWS 09:35
PROVIDERS: PCP Internal Medicine; Visit Provider Advanced Practice Midwife
DX: Z01.419 Encounter for gynecological examination (general) (routine) without abnormal findings (principal); Z12.4 Encounter for screening for malignant neoplasm of cervix; Z87.42 Personal history of other diseases of the female genital tract
CPT/HCPCS: 99396

== ENCOUNTER → 2023-10-26 09:35 | Outpatient (BNVA) | payer OTHER, SELFPAY | PROVIDERS: PCP Internal Medicine; Visit Provider Advanced Practice Midwife ==

== ENCOUNTER 2024-01-16 09:09 | Outpatient (REF) | payer OTHER, SELFPAY ==
[2024-01-16 10:46] LABS: Prothrombin Time 11.7 SEC (11.1-13.3)
[2024-01-16 11:11] LABS: Alanine Aminotransferase 13 U/L (0-31); Albumin Level 3.9 g/dL (3.5-5.0); Alkaline Phosphatase 73 U/L (39-117); Aspartate Amino Transferase 17 U/L (5-31); Bilirubin Direct 0.2 mg/dL (0.0-0.5); Bilirubin Total 0.5 mg/dL (0.0-1.0); Total Protein 7.7 g/dL (6.5-8.0)
[2024-01-18 15:53] LABS: Hepatitis B Viral DNA Qn - cp 2.92 Log IU/mL (NOT DETECTED); Hepatitis B Viral DNA Qn-IU/mL 825 IU/mL (NOT DETECTED)
[2024-01-23 02:29] LABS: FIB-ALT 11 U/L (6-29); FIB-Alpha-2-Macroglobulin 204 mg/dL (106-279); FIB-Apolipoprotein A1 180 mg/dL (101-198); FIB-GGT 21 U/L (3-55); FIB-Haptoglobin 170 mg/dL (43-212); FIB-Total Bilirubin 0.5 mg/dL (0.2-1.2); Liver Fibrosis Score 0.08; Liver Fibrosis Stage F0; Nec Inflam Act Grade A0; Nec Inflam Act Score 0.02
== END 2024-01-16 09:10 | disposition home or self-care (01) ==
LOC: HO.LAB 09:09
PROVIDERS: PCP Internal Medicine; Visit Provider Internal Medicine
DX: B19.10 Unspecified viral hepatitis B without hepatic coma (principal); E66.9 Obesity, unspecified; Z98.84 Bariatric surgery status; K58.2 Mixed irritable bowel syndrome
CPT/HCPCS: 36415; 80076; 81596; 85610; 87517; 99212

== ENCOUNTER 2024-01-16 09:09 | Outpatient (AMB) | payer OTHER, SELFPAY ==
[2024-01-16 09:12] VITALS: BP 124/61; PULSE 80; BMI 40.0
--- NOTE | 2024-01-16 09:12 | A.OFFVIS_ITS ---
Intake Vital Signs 01/16/24 09:12 Height 5 ft 6 in Weight 248 lb BMI 40.0 BP 124/61 Blood Pressure Location Rt brachial Position Sitting Pulse 80 Pulse Source Monitor Intake Visit Reasons: 6 month fu Intake Note: Patient states shes been having weight gain shes concerned of hasnt eaten anything different. No GI issues at this moment. 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 12/25/22: Pt currently does not have any gastrointestinal sx to include abd pain, N, V or diarrhea. Does not report any new rashes, joint pains. Was first diagnosed around 2001 when she was screened antenatally. Pt reports her father had chronic HBV, she is unsure of status of her mother. Monogamous, and has gotten checked multiple times and remains negative. Thinks she was treated once for this almost 10 years ago and was told its eradicated. Currently not on any antivirals. Most recent labs reviewed. HB s Ag + , HCV Ab negative. Recent US without any fibrosis. Elastography from 2020 also reassuring. GB polyp 3mm. 07/16/23: Pt today with no gastrointestinal complaints. Did get her children screened and they are negative for chronic hepatitis per her report. Labs from 07/03 reviewed with normal LFTs. 01/16/2024: Here for 6 month follow up for Hep B. Unfortunately, did not get her blood work done despite a phone reminder earlier this month. Otherwise, no gastrointestinal complaints. Is quite worried about her weight gain, despite sleeve gastrectomy 2020. Reports that followed all the dietary restrictions after she met with Bariatric Medicine in June, but continued with weight gain regardless. [facility] Medical History Pure hypercholesterolemia Obesity (BMI 30-39.9) Steatosis, liver COVID-19 vaccine administered Adjustment disorder, unspecified H. pylori infection Vitamin B12 deficiency Vitamin D deficiency Vitamin A deficiency Vitamin B1 deficiency GERD (gastroesophageal reflux disease) Surgical History Hx of tubal ligation History of sleeve gastrectomy Hx of section Family History Mother No problems noted. Father Pancreatic cancer Sister No problems noted. Sister No problems noted. Sister No problems noted. Brother No problems noted. Brother No problems noted. Daughter No problems noted. Son No problems noted. Paternal Grandmother Breast cancer Paternal Aunt Breast cancer Social History Household Members: Family Housing: House Are you a primary care services manager to a significant other at home: No Do you presently have visiting nurse or other home services: No Alcohol intake: former Patient Tobacco Use Status: Never used Tobacco e-Cigarette/Vaping Use: Never Used Second Hand Smoke Exposure: No service: No Current occupational status: employed Cognitive needs: No Hearing needs: No Vision needs: No Female Reproductive History Menstrual Age of Menarche: 14 Review of Systems Const All systems reviewed & are unremarkable except as noted in HPI and below Physical Exam Vital Signs: Last Vital Signs Pulse 80 01/16/24 09:12 BP 124/61 01/16/24 09:12 BMI result Body Mass Index 40.0 Const General: cooperative, healthy appearing and comfortable Orientation/consciousness: patient oriented x3 Resp Effort & Inspection: normal respiratory effort Skin General skin exam: no rashes or lesions noted Neuro General: patient oriented x3 and gait normal Extrem General: Yes normal to inspection and Yes full ROM Psych Appearance: grossly normal and well kempt Assessment & Plan Assessment & Plan (1) Hepatitis B: Code(s): B19.10 - Unspecified viral hepatitis B without hepatic coma Plan: #Inactive chronic HBV - HBsAg pos, HBeAg neg - No advanced fibrosis based on NIT Patient is due for her labs. Reminded to get these done today. Plan: - HBV DNA quant - Fibrosure - liver panel and INR Follow up in 1 year if labs stable, otherwise sooner to discuss treatment options (2) Gallbladder polyp: Code(s): K82.4 - Cholesterolosis of gallbladder Plan: 3 mm polyp noted on US 11/2022. Pt asymptomatic. Increase to 4 mm on most recent ultrasound in July 2023. Will repeat US in 1 year, that is in July 2024 to ensure stability. Reminder placed. (3) Obesity (BMI 30-39.9): Comment: S/P sleeve gastrectomy in May 2021 Code(s): E66.9 - Obesity, unspecified Plan: Patient is distressed about ongoing weight gain despite sleeve gastrectomy. Encouraged to follow-up with Bariatric Medicine again, to discuss other options. Also educated on the importance of continuing lifestyle modification including diet and exercise to help with weight loss. Orders: Orders Liver Panel Today B19.10 - Unspecified viral hepatitis B without hepatic coma Hepatitis B Viral DNA Qn Today B19.10 - Unspecified viral hepatitis B without hepatic coma Prothrombin Time INR Today B19.10 - Unspecified viral hepatitis B without hepatic coma Liver Fibrosis Pnl Today B19.10 - Unspecified viral hepatitis B without hepatic coma Coding Level of Care Code Est Pt Level 4 (33702) Diagnoses Hepatitis B B19.10 Gallbladder polyp K82.4 Obesity (BMI 30-39.9) E66.9
== END 2024-01-16 10:15 | disposition home or self-care (01) ==
PROVIDERS: PCP Internal Medicine; Visit Provider Internal Medicine
DX: B19.10 Unspecified viral hepatitis B without hepatic coma (principal); K82.4 Cholesterolosis of gallbladder; E66.9 Obesity, unspecified
CPT/HCPCS: 99214

== ENCOUNTER 2024-01-16 15:30 | Outpatient (AMB) | payer OTHER, SELFPAY ==
--- NOTE | 2024-01-16 15:36 | A.OFFVIS_ITS ---
Intake Intake Visit Reasons: (TV) PO LSG 06/14/21 Allergies No Known Allergies Allergy (Verified 01/16/24 09:17) Medication List - Last Reconciled 01/16/24 by Bri Fowler PA-C acetaminophen (Tylenol) 325 mg PO QID PRN calcium citrate-vitamin D3 315 mg-5 mcg (200 unit) (Calcium Citrate + D) 1 tab PO BID zmchuidpmfnd-pzp-xvul-FA-vit K 45 mg iron- 800 mcg-120 mcg (Bariatric M ultivitamins) caps PO DAILY HPI HPI Comments History of Present Illness Details 43 yo woman who is s/p LSG May [address] Shaikh. She states she only lost 45 lbs since surgery and doesn't know why. Last seen in our office in Aug 2023 at 240.6 lbs. Lowest weight was 217 lbs. Labs done June 2023 - wnl , except low vitamin A. No nausea or vomiting, sometimes has reflux when eats beans, bananas and starchy foods. No abd pain. Sees gastroenterology every 6 months for chronic hepatitis, labs ordered today. Meal plan - wakes at 9am, sleep at 11 pm 9am - black coffee with RTD protein otis e -sips until 6pm. 2pm - whatever my kids bring me Today had frozen fruit, with yogurt and granola. 8pm - hot chocolate and bread OR rice an d chicken breasts May onot eat anything after 2 pm. May snack on grapes or strawberries , always eating peanuts . Doesn't drink alot of water. Exercise - no regular exercise, stopped about 9 months ago because she was gaining weight when she was following instructions . [facility] Medical History Pure hypercholesterolemia Obesity (BMI 30-39.9) Steatosis, liver COVID-19 vaccine administered Adjustment disorder, unspecified H. pylori infection Vitamin B12 deficiency Vitamin D deficiency Vitamin A deficiency Vitamin B1 deficiency GERD (gastroesophageal reflux disease) Surgical History Hx of tubal ligation History of sleeve gastrectomy Hx of section Family History Mother No problems noted. Father Pancreatic cancer Sister No problems noted. Sister No problems noted. Sister No problems noted. Brother No problems noted. Brother No problems noted. Daughter No problems noted. Son No problems noted. Paternal Grandmother Breast cancer Paternal Aunt Breast cancer Social History Household Members: Family Housing: House Are you a primary child care lead teacher to a significant other at home: No Do you presently have visiting nurse or other home services: No Alcohol intake: former Patient Tobacco Use Status: Never used Tobacco e-Cigarette/Vaping Use: Never Used Second Hand Smoke Exposure: No service: No Current occupational status: employed Cognitive needs: No Hearing needs: No Vision needs: No Female Reproductive History Menstrual Age of Menarche: 14 Assessment & Plan Assessment & Plan (1) Obesity (BMI 30-39.9): Comment: S/P sleeve gastrectomy in May 2021 Code(s): E66.9 - Obesity, unspecified Plan: Patient is concerned that she needs a revision of her LSG. We discussed that because she does not have any complications or symptoms it is unlikely a problem with her sleeve. She is asking about anti- obesity meds, todl needs to have healthy habits first. UGI ordered Meal plan - 9am - 4 oz of coffee and 12 oz Premieir shake - over 1.5 hours. 1pm- 3 oz (6 forks ) of each lean protien and vegetable 4pm- protein bar 8pm - 3 oz (6 forks) each of lean and vegetables, 2 oz rice or carbs. Exercise - 5d/ week - 300 calories in 30 minutes. 10cal/minute is her goal. 2,000 leslee/week goal No snacking Patient is still obese and is not considered stable at this time. I spent 30 minutes in total speaking with the patient via video conference counseling , reviewing records and charting in patients chart. . (2) S/P laparoscopic sleeve gastrectomy: Code(s): Z98.84 - Bariatric surgery status Plan: UGI ordered (3) GERD (gastroesophageal reflux disease): Comment: no symptoms at present time Code(s): K21.9 - Gastro-esophageal reflux disease without esophagitis Qualifiers: Esophagitis presence: without esophagitis Qualified Code(s): K21.9 - Gastro-esophageal reflux disease without esophagitis Plan see above Orders: Orders [place] upper GI w air Today E66.9 - Obesity, unspecified, K21.9 - Gastro-esophageal reflux disease without esophagitis, Z98.84 - Bariatric surgery status Telehealth Telehealth Location of provider rendering services: practice address Location of patient: address on file Patient Identification confirmed using: Name, : Yes Telehealth method: video Patient verbally consented to treatment: Yes Patient verbally consented to billing insurance company: Yes Patient informed of any privacy concerns related to visit: Yes Coding Level of Care Code Tele Est Pt Level 4 (63390) Diagnoses Obesity (BMI 30-39.9) E66.9 S/P laparoscopic sleeve gastrectomy Z98.84 Gastroesophageal reflux disease without esophagitis K21.9 Esophagitis presence: without esophagitis
== END 2024-01-16 16:11 | disposition home or self-care (01) ==
LOC: HO.HBS 15:43
PROVIDERS: PCP Internal Medicine; Visit Provider Physician Assistant
DX: E66.9 Obesity, unspecified (principal); Z98.84 Bariatric surgery status; K21.9 Gastro-esophageal reflux disease without esophagitis
CPT/HCPCS: 99214

== ENCOUNTER 2024-01-31 13:35 | Outpatient (REF) | payer OTHER, SELFPAY ==
--- NOTE | ~2024-01-31 | US_ITS ---
EXAMINATION: US PELVIS CLINICAL INFORMATION: Encounter for gynecological examination. COMPARISON: None available. TECHNIQUE: Ultrasound of the pelvis is performed using both transabdominal and transvaginal transducers along with Doppler. Transvaginal imaging is performed due to inadequate visualization transabdominally. FINDINGS: The uterus measures 9.2 cm in length by 2.9 cm in AP dimension by 3.7 cm in transverse dimension. A 2.5 x 2.1 x 0.9 cm, multicystic/multiseptated structure is present in the lower uterine segment contiguous with the endometrial canal. No associated hypervascularity is seen. This may measure The endometrial stripe measures 1 mm in thickness. No fluid is seen in the endometrial cavity. There are cervical nabothian cysts. The right ovary measures 1.0 x 0.5 x 0.5 cm. The left ovary measures 1.4 x 0.8 x 0.4 cm. The ovaries appear unremarkable on color Doppler and pulse Doppler waveform analysis. No adnexal mass is seen. No fluid is identified in the cul-de-sac. US/US pelvic and transvaginal IMPRESSION: 2.5 x 2.1 x 0.9 cm, multicystic/multiseptated structure in the lower uterine segment contiguous with the endometrial canal. No associated hypervascularity. The structure is not further characterized. Neoplasm cannot be confirmed or excluded. Recommend MRI with contrast for further evaluation.
== END 2024-01-31 13:36 | disposition home or self-care (01) ==
LOC: HO.US 13:35
PROVIDERS: PCP Internal Medicine; Visit Provider Advanced Practice Midwife
DX: Z01.419 Encounter for gynecological examination (general) (routine) without abnormal findings (principal); Z87.42 Personal history of other diseases of the female genital tract
CPT/HCPCS: 76830; 76856

== ENCOUNTER 2024-02-12 12:54 | Outpatient (AMB) | payer OTHER, SELFPAY ==
[2024-02-12 13:02] VITALS: BP 130/74; BMI 40.7
--- NOTE | 2024-02-12 13:02 | MHC.OFFVIS ---
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 Pelvic ultrasound showed the following: The uterus measures 9.2 cm in length by 2.9 cm in AP dimension by 3.7 cm in transverse dimension. A 2.5 x 2.1 x 0.9 cm, multicystic/multiseptated structure is present in the lower uterine segment contiguous with the endometrial canal. No associated hypervascularity is seen. This may measure The endometrial stripe measures 1 mm in thickness. No fluid is seen in the endometrial cavity. There are cervical nabothian cysts. The right ovary measures 1.0 x 0.5 x 0.5 cm. The left ovary measures 1.4 x 0.8 x 0.4 cm. The ovaries appear unremarkable on color Doppler and pulse Doppler waveform analysis. No adnexal mass is seen. No fluid is identified in the cul-de-sac. Last co testing was in 10/17 was negative Last screening mammogram was in 2021. The patient is scheduled for another screening mammogram in 2 weeks [facility] Medical History Pure hypercholesterolemia Obesity (BMI 30-39.9) Steatosis, liver COVID-19 vaccine administered Adjustment disorder, unspecified H. pylori infection Vitamin B12 deficiency Vitamin D deficiency Vitamin A deficiency Vitamin B1 deficiency GERD (gastroesophageal reflux disease) Surgical History Hx of tubal ligation History of sleeve gastrectomy Hx of section Family History Mother No problems noted. Father Pancreatic cancer Sister No problems noted. Sister No problems noted. Sister No problems noted. Brother No problems noted. Brother No problems noted. Daughter No problems noted. Son No problems noted. Paternal Grandmother Breast cancer Paternal Aunt Breast cancer Social History Household Members: Family Housing: House Are you a primary direct care supervisor to a significant other at home: No Do you presently have visiting nurse or other home services: No Alcohol intake: former Patient Tobacco Use Status: Never used Tobacco e-Cigarette/Vaping Use: Never Used Second Hand Smoke Exposure: No service: No Current occupational status: employed Cognitive needs: No Hearing needs: No Vision needs: No Female Reproductive History Menstrual Age of Menarche: 14 Date of last menstrual period: 09/23/20 control method: permanent sterilization Total pregnancies: 2 Full term: 2 Date of last pap smear: 10/17/22 Review of Systems Card Reports as per HPI and Reports no additional complaints Resp Reports as per HPI and Reports no additional complaints GI Reports as per HPI and Reports no additional complaints Reports as per HPI Physical Exam Vital Signs: Last Vital Signs BP 130/74 02/12/24 13:02 BMI result Body Mass Index 40.7 Const General: cooperative, healthy appearing and comfortable Resp Effort & Inspection: normal respiratory effort Auscultation: clear to auscultation bilaterally Percussion: percussion normal Cardio Palpation: normal PMI Rate: regular rate Rhythm: regular rhythm Heart sounds: no murmurs and no rubs Peripheral pulses: Peripheral pulses 2+ throughout GI Inspection: Yes normal to inspection Palpation (GI): Soft to palpation, nontender, no guarding, not rigid and No hepatosplenomegaly present Percussion: Yes normal to percussion Auscultation: normal bowel sounds Rectal Exam - Female: deferred Assessment & Plan Assessment & Plan (1) Oligomenorrhea: Code(s): N91.5 - Oligomenorrhea, unspecified Plan: Will order CBC, TSH, prolactin, hCG, recommended endometrial sampling to rule out endometrial pathology including endometrial hyperplasia and/or malignancy. (2) Abnormal pelvic ultrasound: Comment: Multi 2.5 cm multi septated, cystic mass in the lower uterine segment Code(s): R93.89 - Abnormal findings on diagnostic imaging of other specified body structures Plan: Discussed with the patient the results the ultrasound showing a 2.5 cm multi septated multi cystic mass in the lower uterine segment, possible differential diagnosis, recommended hysteroscopy D&C possible polypectomy/myomectomy. Discussed with the patient the procedure , all benefits and risks including but not limited to inability to complete the procedure , insufficient endometrial tissue for a complete evaluation of the endometrial cavity , bleeding, infection, possible need for blood transfusion with all its risk ( HIV,syphilis, Hepatitis, anaphylaxis shock, others..), injury to bladder, rectum, possible need for laparoscopy/laparotomy or hysterectomy. The patient verbalized understanding and signed the consent. Instructions given the patient to schedule a 2 week postoperative appointment Orders: Orders TSH reflex Free T4 Today N93.9 - Abnormal uterine and vaginal bleeding, unspecified HCG Quantitative Today N93.9 - Abnormal uterine and vaginal bleeding, unspecified Prolactin Today N93.9 - Abnormal uterine and vaginal bleeding, unspecified Coding Level of Care Code Est Pt Level 3 (65909) Diagnoses Oligomenorrhea N91.5 Abnormal pelvic ultrasound R93.89
== END 2024-02-12 13:26 | disposition home or self-care (01) ==
LOC: HO.HWS 12:54
PROVIDERS: PCP Internal Medicine; Visit Provider Obstetrics & Gynecology
DX: N91.5 Oligomenorrhea, unspecified (principal); R93.89 Abnormal findings on diagnostic imaging of other specified body structures
CPT/HCPCS: 99213

== ENCOUNTER 2024-02-12 12:54 | Outpatient (REF) | payer OTHER, SELFPAY ==
[2024-02-12 15:12] LABS: HCG Quantitative 6 mIU/mL; TSH reflex Free T4 2.53 uIU/mL (0.32-4.0)
[2024-02-13 15:39] LABS: Prolactin 5.2 ng/mL
== END 2024-02-12 12:55 | disposition home or self-care (01) ==
LOC: HO.LAB 12:54
PROVIDERS: PCP Internal Medicine; Visit Provider Obstetrics & Gynecology
DX: N93.9 Abnormal uterine and vaginal bleeding, unspecified (principal)
CPT/HCPCS: 36415; 84146; 84443; 84702; 99212

== ENCOUNTER 2024-02-20 09:30 | Outpatient (AMB) | payer OTHER, SELFPAY ==
--- NOTE | 2024-02-20 09:38 | MHC.OFFVISWM ---
Intake VS Expanded 02/20/24 09:52 Height 5 ft 6 in Weight 245 lb BMI 39.5 Intake Visit Reasons: (TV) PO LSG 06/14/21 Allergies No Known Allergies Allergy (Verified 02/12/24 13:03) HPI HPI Comments History of Present Illness Details Patient is concerned that she needs a revision of her LSG. PATIENT ESCORT weight of 268 lbs, lowest weight after surgery was 21 7 lbs. UGI scheduled - Aprril 24. Meal plan - 9:30 am - Coffee - black 12:30 pm - Premier shake 4pm - 4 oz (?) does not measure protein with 3 oz rice and sometimes salad 8pm - nothing specific , last night had cheese Exercise - none, plans to start treadmill at least 4 d/ wk This is the plan we discussed at her last appt: 9am - 4 oz of coffee and 12 oz Premieir shake - over 1.5 hours. 1pm- 3 oz (6 forks ) of each lean protien and vegetable 4pm- protein bar 8pm - 3 oz (6 forks) each of lean and vegetables, 2 oz rice or carbs. No snacking Exercise - 5d/ week - 300 calories in 30 minutes. 10cal/minute is her goal. 2,000 leslee/week goal PFS Medical History Pure hypercholesterolemia Obesity (BMI 30-39.9) Steatosis, liver COVID-19 vaccine administered Adjustment disorder, unspecified H. pylori infection Vitamin B12 deficiency Vitamin D deficiency Vitamin A deficiency Vitamin B1 deficiency GERD (gastroesophageal reflux disease) Surgical History Hx of tubal ligation History of sleeve gastrectomy Hx of section Family History Mother No problems noted. Father Pancreatic cancer Sister No problems noted. Sister No problems noted. Sister No problems noted. Brother No problems noted. Brother No problems noted. Daughter No problems noted. Son No problems noted. Paternal Grandmother Breast cancer Paternal Aunt Breast cancer Social History Household Members: Family Housing: House Are you a primary healthcare science specialist to a significant other at home: No Do you presently have visiting nurse or other home services: No Alcohol intake: former Patient Tobacco Use Status: Never used Tobacco e-Cigarette/Vaping Use: Never Used Second Hand Smoke Exposure: No service: No Current occupational status: employed Cognitive needs: No Hearing needs: No Vision needs: No Female Reproductive History Menstrual Age of Menarche: 14 Assessment & Plan Assessment & Plan (1) S/P laparoscopic sleeve gastrectomy: Code(s): Z98.84 - Bariatric surgery status Plan: Pt is s/p LSG in 2020 with minimal weight loss of 50 lbs only. She never followed our meal or exercise programs and since having her last appt with me she still has not started. We reviewed my initial recommendations again today and once again I reminded her that revision surgery is not the answer for her - healthy meal and exercise plans are what she needs to follow. She will have follow up with [facility] after UGI on 03/19. I ordered vitamin levels today Patient is still morbidly obese and is not considered stable at this time. I spent 30 minutes in total speaking with the patient via video conference counseling , reviewing records and charting in patients chart. . (2) Obesity: Code(s): E66.9 - Obesity, unspecified Plan see above Orders: Orders Zinc Today E66.9 - Obesity, unspecified, Z98.84 - Bariatric surgery status Vitamin A Today E66.9 - Obesity, unspecified, Z98.84 - Bariatric surgery status Vitamin B12 and Folate Today E66.9 - Obesity, unspecified, Z98.84 - Bariatric surgery status Vitamin B1 Today E66.9 - Obesity, unspecified, Z98.84 - Bariatric surgery status Vitamin D 25-OH Total Today E66.9 - Obesity, unspecified, Z98.84 - Bariatric surgery status Telehealth Telehealth Location of provider rendering services: practice address Location of patient: address on file Patient Identification confirmed using: Name, : Yes Telehealth method: video Patient verbally consented to treatment: Yes Patient verbally consented to billing insurance company: Yes Patient informed of any privacy concerns related to visit: Yes Coding Level of Care Code Tele Est Pt Level 4 (38322) Diagnoses S/P laparoscopic sleeve gastrectomy Z98.84 Obesity E66.9
[2024-02-20 09:52] VITALS: BMI 39.5
== END 2024-02-20 10:23 | disposition home or self-care (01) ==
LOC: HO.HBS 10:02
PROVIDERS: PCP Internal Medicine; Visit Provider Physician Assistant
DX: E66.9 Obesity, unspecified (principal); Z68.39 Body mass index [BMI] 39.0-39.9, adult; Z90.3 Acquired absence of stomach [part of]; Z98.84 Bariatric surgery status
CPT/HCPCS: 99214

== ENCOUNTER → 2024-02-20 09:30 | Outpatient (BNVA) | payer OTHER, SELFPAY | PROVIDERS: PCP Internal Medicine; Visit Provider Physician Assistant | DX: E66.9 Obesity, unspecified (principal); Z98.84 Bariatric surgery status; K21.9 Gastro-esophageal reflux disease without esophagitis ==

== ENCOUNTER 2024-02-21 08:16 | Outpatient (REF) | payer OTHER, SELFPAY ==
--- NOTE | ~2024-02-21 | MM_ITS ---
EXAMINATION: MM SCREENING DIGITAL BREAST TOMOSYNTHESIS, BILATERAL CLINICAL INFORMATION: Screening. Asymptomatic. COMPARISON: Mammography: This study is compared with prior exams dating back to 2021. TECHNIQUE: Digital breast tomosynthesis is performed in both the craniocaudal and mediolateral oblique views along with computer-aided detection (CAD). Synthesized 2D images are generated from the tomosynthesis. FINDINGS: The breasts are almost entirely fatty (ACR BI-RADS breast composition Category a). There are no significant masses, abnormal calcifications, or other abnormalities. MM/MM tomosynthesis screening BI IMPRESSION: No mammographic evidence of malignancy. ASSESSMENT: BI-RADS BI-RADS 1 - Negative RECOMMENDATION: Routine annual mammography screening. 1 year F/U This examination should not preclude the clinical evaluation of a suspicious palpable abnormality. This patient's information was entered into a reminder system with a target due date for their next mammogram.
== END 2024-02-21 08:17 | disposition home or self-care (01) ==
LOC: HO.MAMMO 08:16
PROVIDERS: PCP Internal Medicine; Visit Provider Internal Medicine
DX: Z12.31 Encounter for screening mammogram for malignant neoplasm of breast (principal)
CPT/HCPCS: 77063; 77067

== ENCOUNTER → 2024-02-21 08:45 | Outpatient (BNV) | payer OTHER, SELFPAY | PROVIDERS: PCP Internal Medicine; Visit Provider Radiology Diagnostic Radiology | DX: Z12.31 Encounter for screening mammogram for malignant neoplasm of breast (principal) | CPT/HCPCS: 77063; 77067 ==

== ENCOUNTER 2024-03-07 10:09 | Day surgery (SDC) | payer OTHER, SELFPAY ==
--- NOTE | 2024-03-05 11:44 | P.CONAN_ITS ---
Documented by User: Rebecca Farrar NP 03/05/24 11:44 HPI - Anesthesia Eval Consult details Narrative: 43yo F for D&C Hysteroscopy,possible myomectomy,possible polypectomy PMFSH Active Problems Active Problems: All Active Problems Abnormal pelvic ultrasound (Acute) Oligomenorrhea (Acute) History of irregular menstrual cycles (Acute) Vitamin D deficiency (Acute) Vitamin B1 deficiency (Acute) Vitamin A deficiency (Acute) Gallbladder polyp (Acute) Hepatitis B (Acute) H. pylori infection (Acute) Screen for sexually transmitted diseases (Acute) Cervical cancer screening (Acute) Health education/counseling (Acute) Antibiotic treatment within past 2 months (Acute) Vaginal itching (Acute) Well woman exam with routine gynecological exam (Acute) Left arm pain (Acute) Pure hypercholesterolemia (Acute) Annual physical exam (Acute) BMI 35.0-35.9,adult (Acute) Obesity (BMI 30-39.9) (Acute) BMI 38.0-38.9,adult (Acute) Obesity (Acute) BMI 37.0-37.9, adult (Acute) Steatosis, liver (Acute) Congenital intra-abdominal adhesions (Acute) S/P laparoscopic sleeve gastrectomy (Acute) GERD (gastroesophageal reflux disease) (Acute) Morbid obesity (Acute) Past Medical History Medical History Pure hypercholesterolemia Obesity (BMI 30-39.9) Steatosis, liver COVID-19 vaccine administered Adjustment disorder, unspecified H. pylori infection Vitamin B12 deficiency Vitamin D deficiency Vitamin A deficiency Vitamin B1 deficiency GERD (gastroesophageal reflux disease) Family History Family History Mother No problems noted. Father Pancreatic cancer Sister No problems noted. Sister No problems noted. Sister No problems noted. Brother No problems noted. Brother No problems noted. Daughter No problems noted. Son No problems noted. Paternal Grandmother Breast cancer Paternal Aunt Breast cancer Surgical History Surgical History Hx of tubal ligation History of sleeve gastrectomy Hx of section Social History Social History Household Members: Family Housing: House Are you a primary patient care nursing assistant to a significant other at home: No Do you presently have visiting nurse or other home services: No Alcohol intake: former Patient Tobacco Use Status: Never used Tobacco e-Cigarette/Vaping Use: Never Used Second Hand Smoke Exposure: No Use of substances other than those prescribed or required for medical reasons: No Are you DNR?: No Advance Directives: No Advance Directives Information Provided: Yes service: No Current occupational status: employed Cognitive needs: No Hearing needs: No Vision needs: No Meds Allergies Allergy/AdvReac Type Severity Reaction Status Date / Time No Known Allergies Allergy Verified 02/12/24 13:03 Home Medications ?Medication ?Instructions ?Recorded ?Confirmed ?Last Taken ?Type acetaminophen 325 mg capsule 325 mg PO QID PRN 06/20/21 01/16/24 Unknown History (Tylenol) [id number] 45 mg-folic cap PO DAILY 02/27/22 01/16/24 Unknown History acid 800 mcg-vit K 120 mcg capsule (Bariatric Multivitamins) Assessment and Plan Assessment Anesthesia Assessment: Chart Reviewed Documented by User: Kendy Mason MD 03/07/24 11:01 [facility] Past Medical History Medical History Pure hypercholesterolemia Obesity (BMI 30-39.9) Steatosis, liver COVID-19 vaccine administered Adjustment disorder, unspecified H. pylori infection Vitamin B12 deficiency Vitamin D deficiency Vitamin A deficiency Vitamin B1 deficiency GERD (gastroesophageal reflux disease) Family History Family History Mother No problems noted. Father Pancreatic cancer Sister No problems noted. Sister No problems noted. Sister No problems noted. Brother No problems noted. Brother No problems noted. Daughter No problems noted. Son No problems noted. Paternal Grandmother Breast cancer Paternal Aunt Breast cancer Family history of problems with anesthesia: No Surgical History Surgical History Hx of tubal ligation History of sleeve gastrectomy Hx of section History of Problems with Anesthesia: No Social History Social History Household Members: Family Housing: House Are you a primary patient care nursing assistant to a significant other at home: No Do you presently have visiting nurse or other home services: No Alcohol intake: former Patient Tobacco Use Status: Never used Tobacco e-Cigarette/Vaping Use: Never Used Second Hand Smoke Exposure: No Use of substances other than those prescribed or required for medical reasons: No Are you DNR?: No Advance Directives: No Advance Directives Information Provided: Yes service: No Current occupational status: employed Cognitive needs: No Hearing needs: No Vision needs: No Meds Allergies Allergy/AdvReac Type Severity Reaction Status Date / Time No Known Allergies Allergy Verified 02/12/24 13:03 Home Medications ?Medication ?Instructions ?Recorded ?Confirmed ?Last Taken ?Type acetaminophen 325 mg capsule 325 mg PO QID PRN 06/20/21 01/16/24 Unknown History (Tylenol) [id number] 45 mg-folic cap PO DAILY 02/27/22 01/16/24 Unknown History acid 800 mcg-vit K 120 mcg capsule (Bariatric Multivitamins) Exam Airway Mallampati Class: II TM Dist: >3cm Neck ROM: Full Heart: rrr Lungs: cta Assessment and Plan Assessment Anesthesia Assessment: Anesthesia Plan Discussed Final Anesthetic Review Family History of Problems with Anesthesia: No History of Problems with Anesthesia: No NPO: Yes ASA Class: III Final Preanesthetic Review: No Changes in Pt Med Stat, Meds/Allgs Chart Reviewed and Consent Obtained/Reviewed Patient Risk: Intermediate Procedure Risk: Low Anesthetic Plan Anesthetic Plan: GA Disposition: Standard PACU
[2024-03-07 10:18] VITALS: BMI 40.6
[2024-03-07 10:24] VITALS: BP 117/63; PULSE 88; RESP 16; TEMP 37; O2SAT 96
[2024-03-07] MEDS: Lactated Ringers 1,000 ML 100 ML IVCONT (10:39)
[2024-03-07 10:51] LABS: UPreg QC Valid YES; Urine Pregnancy NEGATIVE (NEGATIVE)
--- NOTE | 2024-03-07 11:43 | MHC.SHP ---
Pre-Procedural Eval Section A - 24 Hr Update-Section A only Date of Service: 03/07/24 The patient is an INPATIENT: No Changes since office visit: No Cold of Flu in the past 2 weeks, No New Medical Problems, No Changes in Medication and No Patient answered all questions The patient has been examined within 24 hours of the surgical procedure. The History & Physical has been completed within 30 days and I have reviewed it.: Yes Section B - Complete if H&P > 30 days Chief Complaint: Abnormal findings on diagnostic imaging Allergies: Allergies Allergy/AdvReac Type Severity Reaction Status Date / Time No Known Allergies Allergy Verified 02/12/24 13:03 Plan Diagnosis/Plan: Unchanged I have reviewed the history and physical and performed a pertinent physical examination on my patient. No changes have occurred unless specified. Time Spent With Patient Time: Total time managing care of this patient today ____ minutes.
--- NOTE | 2024-03-07 12:29 | PM.OP ---
Brief Operative Note Date of Service: 03/07/24 Pre-op diagnosis: Abnormal endometrium by ultrasound Post-op diagnosis: same (Endometrial polyp) Procedure: Hysteroscopy D&C, Polypectomy Surgeon: Prashant Wilde MD Anesthesia: GLMA Was an State Assessed Properties Director used for this Procedure?: No Estimated blood loss (mL): 0 Pathology: other (Endometrial Scrapping. Polyp) Condition: stable Disposition: PACU
--- NOTE | 2024-03-07 12:30 | P.OP_ITS ---
Operative Note Operative Note Date of Service: 03/07/24 Narrative: Preop Diagnosis: Abnormal endometrium by US Operation: Diagnostic Hysteroscopy, Dilataion & Curettage and polypectomy Post Op Diagnosis: Endometrial Polyp QBL: Minimal Anesthesia: GLMA Surgeon: Prashant Wilde MD Laborer Tin Can: None Complication: None Pathology: Endometrial Scrapings, Endometrial polyp Procedure: The patient was put in the dorsal lithotomy position, scrubbed, and draped in the usual manner. A sterile speculum was inserted in the patient's vagina. The anterior lip of the cervix was grasped with a single tooth tenaculum. The cervix was dilated up to 5 mm, then the scope was inserted in the patient's uterus. Inspection revealed endometrial polyp. The Myosure Reach device was used; it was introduced through the operative channel and polypectomy done with no complications. The scope was then taken out from the uterine cavity, sharp curettings was carried on with minimal to moderate amount of tissues retrieved. At the end of the procedure, all instruments were taken out of the patient uterine and vaginal cavity. The single tooth tenaculum was removed and homeostasis was assured using pressure,. The patient tolerated the procedure well and was transferred to the PACU in a stable condition.
[2024-03-07 12:37] VITALS: BP 131/86; PULSE 72; RESP 14; TEMP 36.3; O2SAT 96
[2024-03-07 12:42] VITALS: BP 144/93; PULSE 67; RESP 18; O2SAT 97
[2024-03-07 12:47] VITALS: BP 144/93; PULSE 53; RESP 18; O2SAT 100
[2024-03-07] MEDS: oxyCODONE HCl Immed Release 5 MG TABLET PO (12:51)
[2024-03-07 12:52] VITALS: BP 138/87; PULSE 65; RESP 18; O2SAT 99
[2024-03-07 13:07] VITALS: BP 119/81; PULSE 66; RESP 18; O2SAT 99
== END 2024-03-07 13:50 | disposition home or self-care (01) ==
PROVIDERS: PCP Internal Medicine; Visit Provider Obstetrics & Gynecology
PROC: 0UDB8ZZ Extraction of Endometrium, Via Natural or Artificial Opening Endoscopic (ICD-10-PCS; CPT 58558; principal; 2024-03-07 12:20)
DX: N84.0 Polyp of corpus uteri (principal); N91.5 Oligomenorrhea, unspecified; E78.00 Pure hypercholesterolemia, unspecified; E66.9 Obesity, unspecified; Z68.41 Body mass index [BMI] 40.0-44.9, adult; K76.0 Fatty (change of) liver, not elsewhere classified; E50.9 Vitamin A deficiency, unspecified; E55.9 Vitamin D deficiency, unspecified; E51.9 Thiamine deficiency, unspecified; E53.8 Deficiency of other specified B group vitamins; Z98.51 Tubal ligation status; Z79.84 Long term (current) use of oral hypoglycemic drugs; Z79.899 Other long term (current) drug therapy
CPT/HCPCS: 58558; 81025; 88305; J1885; J2405; J2704; J3010

== ENCOUNTER → 2024-03-07 10:09 | Outpatient (BNV) | payer OTHER, SELFPAY | PROVIDERS: PCP Internal Medicine; Visit Provider Obstetrics & Gynecology | DX: N84.0 Polyp of corpus uteri (principal) | CPT/HCPCS: 58558 ==

== ENCOUNTER 2024-03-19 08:37 | Outpatient (REF) | payer OTHER, SELFPAY ==
--- NOTE | ~2024-03-19 | FL_ITS ---
EXAMINATION: XR FLUOROSCOPY UPPER GI WITH AIR CLINICAL INFORMATION: Status post gastric sleeve. Weight gain. Reflux. COMPARISON: Upper GI 02/10/2021 TECHNIQUE: Fluoroscopic air contrast upper GI examination was performed utilizing standard techniques with thin and thick barium and effervescent granules. Numerous spot images were obtained. FINDINGS: Dual and single contrast images of the esophagus demonstrates the distal one half of the esophagus is mildly patulous. There is normal esophageal contour, and mucosal pattern. No evidence of stricture, mass, or ulcerations identified. Primary peristalsis of the esophagus appeared normal, however was followed by nonpropulsive tertiary contractions. A small type I hiatal hernia is present. Gastroesophageal reflux is present extending to the thoracic inlet. Dual contrast and single contrast images of the stomach demonstrated a contour consistent with prior history of sleeve gastrectomy. No masses are seen. There are a few tiny areas of contrast pooling in the fundus of the stomach that may represent small superficial aphthous ulcers. There are thickened and prominent areae gastricae in the distal fundus and body. Findings likely represent mild gastritis. Contrast freely passed into the gastric antrum and duodenal bulb without delay. Single and air-contrast images of the duodenal bulb demonstrate no abnormality. The duodenal sweep has a normal appearance, course, and mucosal fold appearance. No malrotation. The imaged proximal jejunum has a normal fold pattern and caliber. FLUOROSCOPY TIME: 4 minutes 50 seconds Number of Spot Images: 13 Number of Cine: 9 DOSE AREA PRODUCT: [id number] uGy-m2 (microgray-meter squared) FL/FL upper GI w air IMPRESSION: 1. Small type I hiatal hernia. 2. Significant gastro-esophageal reflux. Mild nonpropulsive tertiary contractions of the esophagus. 3. Mildly patulous caliber of the distal one half of the esophagus. 4. Multiple tiny areas of contrast pooling in the fundus of the stomach that may represent small superficial aphthous ulcers. Mildly irregular mucosal markings noted in the fundus and body. Findings may represent gastritis. Otherwise expected appearance of the stomach status post sleeve gastrectomy. This procedure was performed by Esvin Velez PA-C, and supervised by Dr. Rogers
== END 2024-03-19 08:38 | disposition home or self-care (01) ==
LOC: HO.XRAY 08:37
PROVIDERS: PCP Internal Medicine; Visit Provider Physician Assistant
DX: K21.9 Gastro-esophageal reflux disease without esophagitis (principal); Z98.84 Bariatric surgery status; E66.9 Obesity, unspecified
CPT/HCPCS: 74246

== ENCOUNTER → 2024-03-19 08:37 | Outpatient (BNV) | payer OTHER, SELFPAY | PROVIDERS: PCP Internal Medicine; Visit Provider Physician Assistant Surgical | DX: K21.9 Gastro-esophageal reflux disease without esophagitis (principal) | CPT/HCPCS: 74246 ==

== ENCOUNTER 2024-03-20 12:24 | Outpatient (REF) | payer OTHER, SELFPAY ==
[2024-03-20 14:03] LABS: HCG Quantitative 6 mIU/mL
== END 2024-03-20 12:25 | disposition home or self-care (01) ==
LOC: HO.LAB 12:24
PROVIDERS: PCP Internal Medicine; Visit Provider Obstetrics & Gynecology
DX: R93.89 Abnormal findings on diagnostic imaging of other specified body structures (principal); N91.5 Oligomenorrhea, unspecified; R79.89 Other specified abnormal findings of blood chemistry
CPT/HCPCS: 36415; 83001; 83002; 84702; 99212

== ENCOUNTER 2024-03-20 12:24 | Outpatient (AMB) | payer OTHER, SELFPAY ==
[2024-03-20 12:25] VITALS: BP 120/82; BMI 40.5
--- NOTE | 2024-03-20 12:25 | A.OFFVIS_ITS ---
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 The pathology showed the following: A. Endometrial polyp, resection: Benign endometrial polyp with cysts; no atypia or carcinoma. B. Endometrium, curettage: Benign weakly proliferative endometrium and fragments of benign polyp; no atypia or carcinoma TSH, prolactin within normal H&H 12.5/39.4 Last mammogram was in 02/16 was BI-RADS 1 Last co testing was in 10/17 was negative Pelvic ultrasound done in 02/14 showed the following: The uterus measures 9.2 cm in length by 2.9 cm in AP dimension by 3.7 cm in transverse dimension. A 2.5 x 2.1 x 0.9 cm, multicystic/multiseptated structure is present in the lower uterine segment contiguous with the endometrial canal. No associated hypervascularity is seen. This may measure The endometrial stripe measures 1 mm in thickness. No fluid is seen in the endometrial cavity. There are cervical nabothian cysts. The right ovary measures 1.0 x 0.5 x 0.5 cm. The left ovary measures 1.4 x 0.8 x 0.4 cm. The ovaries appear unremarkable on color Doppler and pulse Doppler waveform analysis. No adnexal mass is seen. No fluid is identified in the cul-de-sac. HCG was 6 on 02/12/24 [facility] Medical History Pure hypercholesterolemia Obesity (BMI 30-39.9) Steatosis, liver COVID-19 vaccine administered Adjustment disorder, unspecified H. pylori infection Vitamin B12 deficiency Vitamin D deficiency Vitamin A deficiency Vitamin B1 deficiency GERD (gastroesophageal reflux disease) Surgical History Hx of tubal ligation History of sleeve gastrectomy Hx of section Family History Mother No problems noted. Father Pancreatic cancer Sister No problems noted. Sister No problems noted. Sister No problems noted. Brother No problems noted. Brother No problems noted. Daughter No problems noted. Son No problems noted. Paternal Grandmother Breast cancer Paternal Aunt Breast cancer Social History Household Members: Family Housing: House Are you a primary home health care social worker to a significant other at home: No Do you presently have visiting nurse or other home services: No Alcohol intake: former Patient Tobacco Use Status: Never used Tobacco e-Cigarette/Vaping Use: Never Used Second Hand Smoke Exposure: No service: No Current occupational status: employed Cognitive needs: No Hearing needs: No Vision needs: No Female Reproductive History Menstrual Age of Menarche: 14 control method: permanent sterilization Review of Systems Const All systems reviewed & are unremarkable except as noted in HPI and below Reports as per HPI and Reports no additional complaints GI Reports no additional complaints Reports no additional complaints Physical Exam Vital Signs: Last Vital Signs BP 120/82 03/20/24 12:25 BMI result Body Mass Index 40.5 Assessment & Plan Assessment & Plan (1) Abnormal pelvic ultrasound: Comment: Multi 2.5 cm multi septated, cystic mass in the lower uterine segment Code(s): R93.89 - Abnormal findings on diagnostic imaging of other specified body structures Category: Medical Plan: Discussed with the patient the intraoperative finding and the pathology results, the patient was reassured. (2) Oligomenorrhea: Code(s): N91.5 - Oligomenorrhea, unspecified Category: Medical Plan: Discussed with the patient the results of the work up done and options of treatment including but not limited to BCP's, cyclic Progesterone, Mirena IUD. All pros, cons, risks and benefits of each option were discussed with the patient and the patient decided to go ahead with cyclic Provera, so a more detailed discussion re: Progesterone treatment including mechanism of action, benefits (regular menses, endometrial protection form unopposed estrogen and reduction in the risk of endometrial hyperplasia and/or cancer ...), risks (Thrombosis, mood changes, weight gain, breast soreness, ? increased breast ca, others). Instructions were given to use a back- up method for contraception since this is not a method control, take the medication 1 tablet daily starting day 15-24 and to schedule a 3 months follow-up appointment; patient verbalized understanding and agreed with the plan. (3) Elevated serum hCG: Code(s): R79.89 - Other specified abnormal findings of blood chemistry Category: Medical Plan: Will repeat hCG quantitative was FSH/LH will check the results and treat accordingly. All questions answered, the patient verbalized understanding Orders: Orders Follicle Stimulating Hormone Today N91.5 - Oligomenorrhea, unspecified HCG Quantitative Today N91.5 - Oligomenorrhea, unspecified Lutenizing Hormone Today N91.5 - Oligomenorrhea, unspecified Medications: New medroxyprogesterone (Provera) start Provera 1 tablet daily from day 15-24 cyclically every months, day 1 being 1st day of menses 10 mg PO DAILY 10 days 30 tabs 0RF Coding Level of Care Code Est Pt Level 3 (52292) Diagnoses Abnormal pelvic ultrasound R93.89 Oligomenorrhea N91.5 Elevated serum hCG R79.89
== END 2024-03-20 12:43 | disposition home or self-care (01) ==
PROVIDERS: PCP Internal Medicine; Visit Provider Obstetrics & Gynecology
DX: R93.89 Abnormal findings on diagnostic imaging of other specified body structures (principal); N91.5 Oligomenorrhea, unspecified; R79.89 Other specified abnormal findings of blood chemistry
CPT/HCPCS: 99213

== ENCOUNTER 2024-07-01 15:39 | Outpatient (REF) | payer OTHER, SELFPAY | END 2024-07-01 15:40 | disposition home or self-care (01) | LOC: HO.LNP 15:39 | PROVIDERS: PCP Internal Medicine; Visit Provider Obstetrics & Gynecology | DX: N95.1 Menopausal and female climacteric states (principal) | CPT/HCPCS: 58100; 88305 ==

== ENCOUNTER 2024-07-01 15:39 | Outpatient (AMB) | payer OTHER, SELFPAY ==
--- NOTE | 2024-07-01 16:04 | A.OFFVIS_ITS ---
Intake Visit Reasons: 3 months med follow up/ EMB Allergies No Known Allergies Allergy (Verified 03/20/24 12:26) HPI Comments Details: Presenting for 3 months EMB follow-up for endometrial biopsy showing proliferative endometrium will FSH/LH are in the menopausal range. The patient has been taking cyclic Provera 10 mg p.o. q.d. 10 days monthly and is having regular menstrual cycles. [facility], LAT[facility] Medical History Pure hypercholesterolemia Obesity (BMI 30-39.9) Steatosis, liver COVID-19 vaccine administered Adjustment disorder, unspecified H. pylori infection Vitamin B12 deficiency Vitamin D deficiency Vitamin A deficiency Vitamin B1 deficiency GERD (gastroesophageal reflux disease) Surgical History Hx of tubal ligation History of sleeve gastrectomy Hx of section Family History Mother No problems noted. Father Pancreatic cancer Sister No problems noted. Sister No problems noted. Sister No problems noted. Brother No problems noted. Brother No problems noted. Daughter No problems noted. Son No problems noted. Paternal Grandmother Breast cancer Paternal Aunt Breast cancer Social History Household Members: Family Housing: House Are you a primary customer care manager to a significant other at home: No Do you presently have visiting nurse or other home services: No Alcohol intake: former Patient Tobacco Use Status: Never used Tobacco e-Cigarette/Vaping Use: Never Used Second Hand Smoke Exposure: No service: No Current occupational status: employed Cognitive needs: No Hearing needs: No Vision needs: No Female Reproductive History Menstrual Age of Menarche: 14 Office Procedures Endometrial Biopsy Details: The patient was counseled regarding the indication and benefits of endometrial sampling to rule out endometrial pathology including not limited to endometrial hyperplasia or endometrial cancer and others; The alternatives (Either do nothing vs. hysteroscopy D&C) & the risks were discussed with the patient including but not limited: pain, uterine perforation, bleeding, infection, possible injury to bladder, bowel, ureter, possible need for blood transfusion with all its possible risks. The patient verbalized understanding all questions answered and signed consent. The patient was placed into the dorsal lithotomy position; a speculum was inserted in the vagina. Using aseptic technique for the procedure, the cervix was cleansed with Betadine. The anterior lip of the cervix was grasped with a single tooth tenaculum. The uterus was sounded to 7 cm with a 4 mm Pipelle was used. Tissues samples were obtained and placed in formalin, in a patient labeled container and sent to the pathology department. At the end of the procedure, there was minimal bleeding noted The patient tolerated the procedure well and was discharged in good condition with the following instructions: Nothing in the vagina until the bleeding stops. No sex until the bleeding stops, to call if any of the following occurs: fever (>100.4), flu-like symptoms, abdominal pain, heavy bleeding, four smelling vaginal discharge. The patient was instructed to schedule a Follow up appointment in 2 weeks to discuss pathology results of the biopsy and treatment options. This note was generated with a voice recognition program. Some errors may have been overlooked during the review of this note. Sometimes these errors may affect the content or meaning of a given sentence. 65051-[id number] Biopsy Assessment & Plan Assessment & Plan (1) Oligomenorrhea: Comment: Proliferative endometrium on EMB Code(s): N91.5 - Oligomenorrhea, unspecified Category: Medical Plan: Repeat EMB done, see procedure Orders: Orders AMB Endometrial Biopsy Today N91.5 - Oligomenorrhea, unspecified Coding Level of Care Code Procedure Only Diagnoses Oligomenorrhea N91.5 CPT Codes Endometrial Biopsy - CPT: 48589-Nuulccxjcqc Biopsy ([id number])
== END 2024-07-02 09:48 | disposition home or self-care (01) ==
LOC: HO.HWS 15:39
PROVIDERS: PCP Internal Medicine; Visit Provider Obstetrics & Gynecology
DX: N91.5 Oligomenorrhea, unspecified (principal)
CPT/HCPCS: 58100

== ENCOUNTER 2024-07-21 09:08 | Outpatient (REF) | payer OTHER, SELFPAY ==
--- NOTE | ~2024-07-21 | US_ITS ---
EXAMINATION: US ABDOMEN LIMITED CLINICAL INFORMATION: Cholesterolosis of the gallbladder. COMPARISON: Ultrasound abdomen 08/15/2023 and 12/13/2022. TECHNIQUE: Real-time imaging of the right upper quadrant abdominal viscera. FINDINGS: PANCREAS: Normal. LIVER: Normal. The liver is normal in size. The liver contour is normal. Parenchymal echogenicity is normal. No focal hepatic lesion. There is no intrahepatic biliary duct dilatation seen. GALLBLADDER: A few gallbladder polyps demonstrating very low risk or low risk morphology largest measuring 5 mm, previously 4 mm and 5 mm, previously 5 mm when measured in similar fashion. The gallbladder is physiologically distended without evidence of stones, sludge, wall thickening or pericholecystic fluid. COMMON BILE DUCT: Normal in caliber measuring 0.23 cm in diameter. RIGHT KIDNEY: Normal. No hydronephrosis. No renal calculi or focal parenchymal lesions. The kidney measures 10.6 cm in maximum dimension. FREE FLUID: None. US/US abdomen limited IMPRESSION: A few gallbladder polyps demonstrating low risk or very low risk morphology largest measuring 5 mm, previously 4 mm and 5 mm, previously 5 mm when measured in a similar fashion. Electronically signed by: Nela Jules MD 08/04/2024 06:32 PM EDT
== END 2024-07-21 09:09 | disposition home or self-care (01) ==
LOC: HO.US 09:08
PROVIDERS: PCP Internal Medicine; Visit Provider Internal Medicine
DX: K82.4 Cholesterolosis of gallbladder (principal)
CPT/HCPCS: 76705

== ENCOUNTER 2024-08-26 08:14 | Outpatient (AMB) | payer OTHER, SELFPAY ==
[2024-08-26 08:20] VITALS: BMI 40.2
--- NOTE | 2024-08-26 08:20 | A.OFFVIS_ITS ---
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 The patient has no complaints, no vaginal bleeding, no feverishness chills or abdominal pain. The endometrial biopsy pathology report showed the following: Benign proliferative endometrium; no atypia or carcinoma The patient is in perimenopause with elevated FSH/LH and oligomenorrhea. On cyclic Provera 10 mg p.o. q.d. day 15-24 and having cyclic regular menstrual cycle with no complaint [facility] Medical History Pure hypercholesterolemia Obesity (BMI 30-39.9) Steatosis, liver COVID-19 vaccine administered Adjustment disorder, unspecified H. pylori infection Vitamin B12 deficiency Vitamin D deficiency Vitamin A deficiency Vitamin B1 deficiency GERD (gastroesophageal reflux disease) Surgical History Hx of tubal ligation History of sleeve gastrectomy Hx of section Family History Mother No problems noted. Father Pancreatic cancer Sister No problems noted. Sister No problems noted. Sister No problems noted. Brother No problems noted. Brother No problems noted. Daughter No problems noted. Son No problems noted. Paternal Grandmother Breast cancer Paternal Aunt Breast cancer Social History Household Members: Family Housing: House Are you a primary restorative care technician to a significant other at home: No Do you presently have visiting nurse or other home services: No Alcohol intake: former Patient Tobacco Use Status: Never used Tobacco e-Cigarette/Vaping Use: Never Used Second Hand Smoke Exposure: No service: No Current occupational status: employed Cognitive needs: No Hearing needs: No Vision needs: No Female Reproductive History Menstrual Age of Menarche: 14 Review of Systems Const All systems reviewed & are unremarkable except as noted in HPI and below Reports as per HPI and Reports no additional complaints GI Reports no additional complaints Reports no additional complaints Physical Exam Vital Signs: BMI result Body Mass Index 40.2 Assessment & Plan Assessment & Plan (1) Oligomenorrhea: Comment: Perimenopause Code(s): N91.5 - Oligomenorrhea, unspecified Category: Medical Plan: Discussed with the patient the results the EMB pathology, recommended to the patient to continue cyclic Provera day 15-24 to call in case of amenorrhea or irregular menstrual cycles. All questions answered, the patient verbalized understand Coding Level of Care Code Est Pt Level 3 (36830) Diagnoses Oligomenorrhea N91.5
== END 2024-08-26 08:43 | disposition home or self-care (01) ==
PROVIDERS: PCP Internal Medicine; Visit Provider Obstetrics & Gynecology
DX: N91.5 Oligomenorrhea, unspecified (principal)
CPT/HCPCS: 99213

== ENCOUNTER → 2024-08-26 08:14 | Outpatient (BNVA) | payer OTHER, SELFPAY | PROVIDERS: PCP Internal Medicine; Visit Provider Obstetrics & Gynecology | DX: N91.5 Oligomenorrhea, unspecified (principal) | CPT/HCPCS: 99212 ==

== ENCOUNTER 2025-09-16 08:03 | Outpatient (REF) | payer OTHER, SELFPAY ==
--- NOTE | ~2025-09-16 | US_ITS ---
CLINICAL HISTORY: K82.4 - Cholesterolosis of gallbladder US abdomen complete with color Doppler Comparison: US/MN/SR - US ABDOMEN LIMITED - 07/21/24 09:37 EDT US/MN/SR - US ABDOMEN - 08/15/23 09:34 EDT US/MN/SR - US ABDOMEN LIMITED - 12/13/22 15:14 EST Findings: The visualized pancreas, aorta, and inferior vena cava are unremarkable. Liver normal size and echotexture. Right lobe 13.5 cm length. No focal hepatic masses. Common duct 3.0 mm diameter. Physiologic distention of the gallbladder. No gallstones or sludge. The dominant gallbladder polyp measures 4 x 3 x 3 mm previously measuring 5 x 4 x 4 mm. No pericholecystic fluid. No sonographic Valdivia sign. Main portal vein antegrade. Right kidney normal size, 9.7 cm in length. Normal cortical width and echotexture. No solid or cystic renal masses. No nephrolithiasis. No hydronephrosis. Left kidney normal, 10.5 cm in length. Normal cortical width and echotexture. No solid or cystic renal masses. No nephrolithiasis. No hydronephrosis. Spleen measures 11.0 cm. No splenic masses. No ascites. No lymphadenopathy. Impression: 1. Dominant gallbladder polyp measures 4 x 3 x 3 mm previously measuring 5 x 4 x 4 mm This document has been electronically signed by: Kwesi Garvey MD on 09/17/2025 13:01:57
--- OUTSIDE RECORDS SUMMARY | 2025-09-16 08:08 | XMS_ITS | Clinical Summary ---
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 Role Phone Unavailable Primary Care Provider Unavailabl e Social History Tobacco Use Types Packs/Day Years Used Date Smoking Tobacco: Never Assessed Comments Unknown Sex and Gender Information Value Date Recorded Sex Assigned at Not on file Legal Sex Female 8:26 AM EST Gender Identity Not on file Sexual Orientation Not on file Plan of Treatment Health Maintenance Due Date Last Done Comments Breast Cancer Screening 1981 DTaP,Tdap,and Td Vaccines (1 - Tdap) 2000 Hepatitis B Vaccines (1 of 3 - 19+ 3-dose series) 2000 Cervical Cancer Screening: P ap Smear 2002 HPV Vaccines (1 - 3-dose SCD M series) 2008 Depression Screening 11/26/2024 COVID-19 Vaccine ( - 2023-2 5 season) 2025 Influenza Vaccine (#1) 2025 RSV Immunization Adult Patie nts (1 - 1-dose 75+ series) 2056 HIB Vaccines Aged Out No longer eligi ble based on patient's age to complete this topic Hepatitis A Vaccines Aged Out No long er eligible based on patient's age to complete this topic IPV Vaccines Aged Out No longer eligi ble based on patient's age to complete this topic MMR Vaccines Aged Out No longer eligi ble based on patient's age to complete this topic Meningococcal ACWY Vaccine Aged Out N o longer eligible based on patient's age to complete this topic Meningococcal B Vaccine Aged Out No l onger eligible based on patient's age to complete this topic Pneumococcal Vaccine: Pediat rics (0 to 5 Years) and At-Risk Patients (6 to 49 Years) Aged Out No longer eligible b ased on patient's age to complete this topic RSV Immunization Patients Un krystle 20 months Aged Out No longer eligible b ased on patient's age to complete this topic Varicella Vaccines Aged Out No longer eligible based on patient's age to complete this topic
== END 2025-09-16 08:04 | disposition home or self-care (01) ==
LOC: HO.US 08:03
PROVIDERS: PCP Internal Medicine; Visit Provider Internal Medicine
DX: K82.4 Cholesterolosis of gallbladder (principal)
CPT/HCPCS: 76700

== ENCOUNTER → 2025-09-16 08:07 | Outpatient (BNV) | payer OTHER, SELFPAY | PROVIDERS: PCP Internal Medicine; Visit Provider Radiology Diagnostic Radiology | DX: K82.4 Cholesterolosis of gallbladder (principal) | CPT/HCPCS: 76700 ==